=== PATIENT | male | born 1965 | race Caucasian/White ===

== ENCOUNTER 2020-03-27 12:23 | Outpatient (REF) | payer MEDICARE, OTHER, SELFPAY | END 2020-03-27 12:24 | disposition home or self-care (01) | LOC: HO.LAB 12:23 | PROVIDERS: PCP Student in an Organized Health Care Education/Training Program; Visit Provider Internal Medicine | DX: Z20.828 Contact with and (suspected) exposure to other viral communicable diseases (principal) | CPT/HCPCS: C9803; U0003 ==

== ENCOUNTER → 2020-04-15 09:14 | Outpatient (BNVA) | payer MEDICARE, OTHER, SELFPAY | PROVIDERS: PCP Student in an Organized Health Care Education/Training Program; Visit Provider Surgery Vascular Surgery | DX: I83.11 Varicose veins of right lower extremity with inflammation (principal); I73.9 Peripheral vascular disease, unspecified | CPT/HCPCS: 99202 ==

== ENCOUNTER 2020-05-05 08:15 | Outpatient (REF) | payer MEDICARE, OTHER, SELFPAY ==
--- NOTE | 2020-05-05 | US_ITS ---
EXAMINATION: COLOR-FLOW DUPLEX IMAGING OF THE BILATERAL LOWER EXTREMITY ARTERIAL SYSTEM. VELOCITY MEASUREMENTS THROUGHOUT THE FEMORAL ARTERIES WITH ANKLE-BRACHIAL PERIPHERAL ARTERIAL TESTING. CLINICAL INFORMATION: This is a 54-year-old male with occlusion and stenosis of unspecified artery. Hyperlipidemia. Hypertension. Interventional Radiologist: Carlos Luo M.D., F.S.I.R., F.A.C.R. RIGHT FEMORAL RUNOFF VELOCITIES: The right common femoral artery measures 149 cm/s and triphasic. The right profunda femoral artery is 106 cm/s and is biphasic. Right proximal superficial femoral artery measures 119 cm/s and triphasic. Mid superficial femoral artery is 114 cm/s and triphasic. Distal right superficial femoral artery measures 90 cm/s and is triphasic. Right popliteal velocity measures 105 cm/s and is triphasic. The posterior tibial artery velocity measures 91 cm/s and was triphasic. The right ankle-brachial index is 1.06. LEFT FEMORAL RUNOFF VELOCITIES: The left common femoral artery measures 1 4 cm/s and triphasic. The left profunda femoral artery is 102 cm/s and is biphasic. Left proximal superficial femoral artery measures 108 cm/s and biphasic. Mid superficial femoral artery is 112 cm/s and triphasic. Distal left superficial femoral artery measures 81 cm/s and is triphasic. Left popliteal velocity measures 82 cm/s and is triphasic. The posterior tibial artery velocity measures 81 cm/s and was triphasic. The left ankle-brachial index is 1.10. US/US KASSANDRA complete IMPRESSION: 1. Normal bilateral resting peripheral arterial testing without evidence of hemodynamically significant stenosis.
--- NOTE | 2020-05-05 08:19 | US_ITS ---
EXAMINATION: COLOR-FLOW DUPLEX IMAGING OF THE BILATERAL LOWER EXTREMITY ARTERIAL SYSTEM. VELOCITY MEASUREMENTS THROUGHOUT THE FEMORAL ARTERIES WITH ANKLE-BRACHIAL PERIPHERAL ARTERIAL TESTING. CLINICAL INFORMATION: This is a 54-year-old male with occlusion and stenosis of unspecified artery. Hyperlipidemia. Hypertension. Interventional Radiologist: Carlos Luo M.D., F.S.I.R., F.A.C.R. RIGHT FEMORAL RUNOFF VELOCITIES: The right common femoral artery measures 149 cm/s and triphasic. The right profunda femoral artery is 106 cm/s and is biphasic. Right proximal superficial femoral artery measures 119 cm/s and triphasic. Mid superficial femoral artery is 114 cm/s and triphasic. Distal right superficial femoral artery measures 90 cm/s and is triphasic. Right popliteal velocity measures 105 cm/s and is triphasic. The posterior tibial artery velocity measures 91 cm/s and was triphasic. The right ankle-brachial index is 1.06. LEFT FEMORAL RUNOFF VELOCITIES: The left common femoral artery measures 1 4 cm/s and triphasic. The left profunda femoral artery is 102 cm/s and is biphasic. Left proximal superficial femoral artery measures 108 cm/s and biphasic. Mid superficial femoral artery is 112 cm/s and triphasic. Distal left superficial femoral artery measures 81 cm/s and is triphasic. Left popliteal velocity measures 82 cm/s and is triphasic. The posterior tibial artery velocity measures 81 cm/s and was triphasic. The left ankle-brachial index is 1.10. US/US arterial duplex LE BI IMPRESSION: 1. Normal bilateral resting peripheral arterial testing without evidence of hemodynamically significant stenosis.
--- NOTE | 2020-05-05 08:19 | US_ITS ---
EXAMINATION: RIGHT and LEFT LOWER EXTREMITY VENOUS ULTRASOUND (Reflux Exam) CLINICAL INDICATION: leg pain and varicose veins. COMPARISON: None. TECHNIQUE: Color flow triplex imaging and compression Doppler was performed to evaluate both the deep and the superficial systems bilaterally. To evaluate the superficial system, the examination was performed in the upright position. Color-flow Doppler ultrasound and compression ultrasound were utilized. In addition, maneuvers were utilized to demonstrate reflux. FINDINGS: 1. DEEP VENOUS ULTRASOUND OF THE RIGHT LOWER EXTREMITY: Respiratory variation, normal compression and augmented flow are noted in the right common femoral vein as well as the right popliteal vein and there is no evidence of deep venous thrombosis at these locations. There is no evidence of reflux in the deep system in either the common femoral vein or the popliteal vein. There is no evidence of a Ashraf's cyst. 2. SUPERFICIAL ULTRASOUND WITH DOPPLER OF RIGHT LOWER EXTREMITY: The right great saphenous vein at the saphenofemoral junction measures 5 mm, at the mid thigh 3 mm, dbakh-sqc-iyli 3 mm, dlpmn-eks-ctbo 2 mm, at mid calf 1 mm and at the ankle measures 1 mm. There is no reflux demonstrated in the right great saphenous vein. The right small saphenous vein measures 2 mm and shows no reflux. 3. DEEP VENOUS ULTRASOUND OF THE LEFT LOWER EXTREMITY: Respiratory variation, normal compression and augmented flow are noted in the left common femoral vein as well as the left popliteal vein and there is no evidence of deep venous thrombosis at these locations. There is no evidence of reflux in the deep system in either the common femoral vein or the popliteal vein. . There is no evidence of a Ashraf's cyst. 4. SUPERFICIAL ULTRASOUND WITH DOPPLER OF LEFT LOWER EXTREMITY: Left great saphenous vein at the saphenofemoral junction measures 7 mm, at the mid thigh 2 mm, qpdca-lgy-yerc 1 mm, fztcy-gkh-tuni 1 mm, at mid calf 1 mm and at the ankle measures 1 mm. There is no reflux demonstrated in the left great saphenous vein. There is a lateral accessory greater saphenous vein that measures 2 mm and does not demonstrate reflux. The left small saphenous vein measures 2 mm and shows no reflux. There is a heater worker in the mid calf that measures 1 mm and does not demonstrate reflux. There are varicosities in the left thigh and calf measuring less than 2 mm that do not demonstrate reflux. US/US venous duplex LE BI IMPRESSION: 1. No evidence of reflux or thrombus in the common femoral veins or popliteal veins bilaterally. 2. The saphenous systems are competent bilaterally.
== END 2020-05-05 08:16 | disposition home or self-care (01) ==
LOC: HO.US 08:15
PROVIDERS: Visit Provider Surgery Vascular Surgery
DX: I83.11 Varicose veins of right lower extremity with inflammation (principal); I73.9 Peripheral vascular disease, unspecified; I65.29 Occlusion and stenosis of unspecified carotid artery
CPT/HCPCS: 93923; 93925; 93970

== ENCOUNTER → 2020-05-20 08:27 | Outpatient (BNVA) | payer MEDICARE, OTHER, SELFPAY | PROVIDERS: PCP Student in an Organized Health Care Education/Training Program; Visit Provider Surgery Vascular Surgery | DX: I73.9 Peripheral vascular disease, unspecified (principal); I83.11 Varicose veins of right lower extremity with inflammation | CPT/HCPCS: 99212 ==

== ENCOUNTER → 2020-06-02 15:59 | Outpatient (BNVA) | payer MEDICARE, OTHER, SELFPAY | PROVIDERS: PCP Student in an Organized Health Care Education/Training Program; Visit Provider Anesthesiology | DX: M19.011 Primary osteoarthritis, right shoulder (principal); M16.0 Bilateral primary osteoarthritis of hip; Z96.643 Presence of artificial hip joint, bilateral | CPT/HCPCS: 99212 ==

== ENCOUNTER → 2021-08-13 07:53 | Outpatient (BNVA) | payer MEDICARE, OTHER, SELFPAY | PROVIDERS: PCP Student in an Organized Health Care Education/Training Program; Visit Provider Nurse Practitioner | DX: R10.30 Lower abdominal pain, unspecified (principal); K59.03 Drug induced constipation; T40.2X5A Adverse effect of other opioids, initial encounter; Z88.6 Allergy status to analgesic agent | CPT/HCPCS: 99202 ==

== ENCOUNTER 2021-10-06 07:35 | Outpatient (REF) | payer MEDICARE, OTHER, SELFPAY ==
[2021-10-06 08:34] LABS: MANUAL DIFF FLAG NO
[2021-10-06 09:09] LABS: Basophils Absolute Auto 0.1 X10*3/uL (0.0-0.2); Basophils Percent Auto 0.9 % (0-2); Eosinophils Absolute Auto 0.3 X10*3/uL (0.0-0.4); Eosinophils Percent Auto 3.1 % (0-4); Hematocrit 39.7 % (42.0-52.0); Imm Gran Abs Auto 0.03 X10*3/uL (0.00-0.03); Imm Gran Pct Auto 0.4 % (0.0-0.4); Lymphocytes Absolute Auto 2.4 X10*3/uL (1.2-4.9); Lymphocytes Percent Auto 29.6 % (20-40); Mean Corpuscular HGB Conc 32.7 g/dl (31.0-36.0); Mean Corpuscular Hemoglobin 28.8 pg (27.0-33.0); Mean Corpuscular Volume 87.8 fL (80.0-98.0); Mean Platelet Volume 8.6 fL (9.4-12.4); Monocytes Absolute Auto 0.7 X10*3/uL (0.1-1.2); Monocytes Percent Auto 8.6 % (2-11); Neutrophils Absolute Auto 4.7 x10*3/uL (2.0-8.3); Neutrophils Percent Auto 57.4 % (45-73); Platelet Count 269 X10*3/uL (160-400); Red Blood Count 4.52 X10*6/uL (4.60-5.80); Red Cell Distribution Width 12.5 % (11.0-16.0); White Blood Count 8.1 X10*3/uL (4.8-10.8)
[2021-10-06 09:34] LABS: Alanine Aminotransferase 38 U/L (0-40); Albumin Level 4.6 g/dL (3.5-5.0); Alkaline Phosphatase 92 U/L (39-117); Anion Gap 16 (12-20); Aspartate Amino Transferase 28 U/L (5-37); Bilirubin Total 0.8 mg/dL (0.0-1.0); Blood Urea Nitrogen 22 mg/dL (9-16); Carbon Dioxide 27 mmol/L (22-29); Chloride 101 mmol/L (96-108); Estimated Glomerular Filt Rate 56; Glucose Random 110 mg/dL (60-115); Potassium 5.5 mmol/L (3.3-5.1); Sodium 138 mmol/L (135-145); Total Protein 7.6 g/dL (6.5-8.0)
== END 2021-10-06 07:36 | disposition home or self-care (01) ==
LOC: HO.LAB 07:35
PROVIDERS: PCP Student in an Organized Health Care Education/Training Program; Visit Provider Nurse Practitioner
DX: K59.03 Drug induced constipation (principal); T40.2X5A Adverse effect of other opioids, initial encounter; Z12.11 Encounter for screening for malignant neoplasm of colon
CPT/HCPCS: 36415; 80053; 85025; 99212

== ENCOUNTER 2022-12-03 09:29 | Outpatient (REF) | payer MEDICARE, OTHER, SELFPAY ==
[2022-12-03 14:59] LABS: Alanine Aminotransferase 15 U/L (0-40); Albumin Level 4.6 g/dL (3.5-5.0); Alkaline Phosphatase 89 U/L (39-117); Anion Gap 19 (12-20); Aspartate Amino Transferase 16 U/L (5-37); Bilirubin Direct 0.3 mg/dL (0.0-0.5); Bilirubin Total 0.8 mg/dL (0.0-1.0); Blood Urea Nitrogen 17 mg/dL (9-16); Calcium 9.7 mg/dL (8.4-10.2); Carbon Dioxide 22 mmol/L (22-29); Chloride 98 mmol/L (96-108); Cholesterol 136 mg/dL; Estimated Glomerular Filt Rate > 60; Glucose Random 83 mg/dL (60-115); HDL Cholesterol 42 mg/dL; LDL Cholesterol Calculated 74 mg/dl; Potassium 4.4 mmol/L (3.3-5.1); Sodium 135 mmol/L (135-145); Total Protein 7.6 g/dL (6.5-8.0); Triglycerides 102 mg/dL
[2022-12-03 15:14] LABS: Prostate Specific Antigen 0.47 ng/mL (<0.05-4.0)
== END 2022-12-03 09:30 | disposition home or self-care (01) ==
LOC: HO.CHCLDS 09:29
PROVIDERS: Visit Provider Student in an Organized Health Care Education/Training Program
DX: I10 Essential (primary) hypertension (principal); Z12.5 Encounter for screening for malignant neoplasm of prostate
CPT/HCPCS: 36415; 80048; 80061; 80076; 84153

== ENCOUNTER 2024-08-16 08:51 | Outpatient (REF) | payer MEDICARE, OTHER, SELFPAY ==
--- OUTSIDE RECORDS SUMMARY | 2024-08-16 09:20 | XMS_ITS | Encounter Summary ---
Author Organization [employer] Address [address] [place] [address] Care Team Providers Care Computer Trainer Name Role Phone Dasia Gar MD Primary Care Provider [phone] Encounter Details Date Type Department Care Team (Latest Contact Info) Description 08/16/2024 Travel Social History Tobacco Use Types Packs/Day Years Used Date Smoking Tobacco: Former Cigarettes Smokeless Tobacco: Former Alcohol Use Standard Drinks/Week Comments Defer 0 (1 standard drink = 0.6 oz pur e alcohol) Alcohol Answer Date Recorded Frequency of Alcohol Consumption Not on file 04/14/2023 Average Number of Drinks Not on file 023 Frequency of Binge Drinking Not on file 11/2022 Score 0 04/14/2023 Depression Answer Date Recorded Patient Health Questionnaire-9 Score 4 09/29/2022 Housing Stability Answer Date Recorded What is your housing situation today? I have mg virk 06/13/[address] you li ve. Do you have problems with any of the following? None of the above 06/13/2024 Food Insecurity Answer Date Recorded Within the past 12 months, y ou worried that your food would run out before you got money to buy more: Never True 06/13/2024 Within the past 12 months,th e food you bought just didn't last and you didn't have enough money to get more: Never True 09/2024 Transportation Answer Date Recorded In the past 12 months, has l ack of transportation kept you from medical appts, meetings, work or from getting things needed for daily living? No 06/13/2024 Utilities Answer Date Recorded In the past 12 months, has t he electric, gas, oil or water company threatened to shut off services in your home? No 06/13/2024 Depression Answer Date Recorded Patient Health Questionnaire-2 Score 2 09/29/2022 Internet Access Answer Date Recorded Internet Access Q1 Yes 06/13/2024 Internet Access Q2 Not on file 06/13/2024 Sex and Gender Information Value Date Recorded Sex Assigned at Male 03/08/2022 10:17 AM EDT Legal Sex Male 10:17 AM EDT Gender Identity Male 03/08/2022 10:17 AM EDT Sexual Orientation Straight 03/08/2022 10 :17 AM EDT documented as of this encounter Plan of Treatment Upcoming Encounters Date Type Department Care Team (Late st Contact Info) Description 10/05/2024 9:15 AM EDT Office Visit [facility] [address] [place] [address] Dasia Gar MD [address] [place] [address] 10/24/2024 9:00 AM EDT Clinical Support [facility] [address] [place] [address] Shelly Jarquin, GEOVANNA [address] [place] [address] documented as of this encounter Visit Diagnoses Not on filedocumented in this encounter Additional Health Concerns Assessment Noted Time PHQ-9 Depression Total Score: 4 09/30/19 23 9:25 AM EDT documented as of this encounter Care Teams Computer Trainer Relationship Specialty Start Date End Date Dasia Gar MD [address] [place] [id number] PCP - General Family Medicine 04/21/12 documented as of this encounter
--- OUTSIDE RECORDS SUMMARY | 2024-08-16 09:20 | XMS_ITS | Encounter Summary ---
Author Organization [email or web address] Address [address] [place] [address] Care Team Providers Care Movie Writer Name Role Phone Dasia Gar MD Primary Care Provider [phone] Reason for Visit * Reason Comments Med Refill Encounter Details Date Type Department Care Team (Late st Contact Info) Description 05/04/2023 Refill [facility] [address] [place], [place] [phone] Anahi Parker, ANP [address] [place] [address] Low back pain without sciatica, unspecified back pain laterality, unspecified chronicity Social History Tobacco Use Types Packs/Day Years [...] housing situation today? I have mg virk 03/04/[address] you li ve. Do you have problems with any of the following? None of the above 03/04/2023 Food Insecurity Answer Date Recorded Within the past 12 months, y ou worried that your food would run out before you got money to buy more: Never True 04/14/2023 Within the past 12 months,th e food you bought just didn't last and you didn't have enough money to get more: Never True 11/2022 Transportation Answer Date Recorded In the past 12 months, has l ack of transportation kept you from medical appts, meetings, work or from getting things needed for daily living? No 03/04/2023 Utilities Answer Date Recorded In the past 12 months, has t he electric, gas, oil or water company threatened to shut off services in your home? No 03/04/2023 Depression Answer Date Recorded Patient Health Questionnaire-2 Score 2 09/29/2022 Sex and Gender Information Value Date Recorded Sex Assigned at Male 03/08/2022 10:17 AM EDT Legal Sex Male 10:17 AM EDT Gender Identity Male 03/08/2022 10:17 AM EDT Sexual Orientation Straight 03/08/2022 10 :17 AM EDT documented as of this encounter Plan of Treatment Upcoming Encounters Date Type Department Care Team (Late st Contact Info) Description 10/05/2024 9:15 AM EDT Office Visit [facility] [address] [place] [address] Dasia Gar MD [address] [place] [address] 10/24/2024 9:00 AM EDT Clinical Support [facility] [address] [place] [address] Shelly Jaruqin, RN [address] [place] [address] documented as of this encounter Visit Diagnoses Diagnosis Low back pain without sciatica, unspecified back pain laterality, unspecified chronicity documented in this encounter Additional Health Concerns Assessment Noted Time PHQ-9 Depression Total Score: 4 09/30/19 23 9:25 AM EDT documented as of this encounter Care Teams Movie Writer Relationship Specialty Start Date End Date Dasia Gar MD [address] [place] [id number] PCP - General Family Medicine 04/21/12 documented as of this encounter
--- OUTSIDE RECORDS SUMMARY | 2024-08-16 09:20 | XMS_ITS | Clinical Summary ---
Author Organization [employer] Address [address] [facility] [address] [place] [address] Care Team Providers Care Solar Photovoltaic Installer Name Role Phone Dasia Gar MD Primary Care Provider [phone] Allergies Active Allergy Reactions Criticality Noted Date Comments Pregabalin 01/06/2016 Medications albuterol (ProAir HFA) 108 (90 Base) MCG/ACT inhaler take 2 puffs by Inhalation route 4 times every day 11/19/19 21 Active buPROPion SR (Wellbutrin SR) 200 MG 12 hr tablet take 1 tablet (200MG) by oral route every day Active diazePAM (Valium) 10 MG tablet Take 1 tablet by mouth every twelve hours as needed Active FLUoxetine (PROzac) 20 MG tablet take 1 Tablet by oral route every 2 days in the morning Active hydrOXYzine HCl (Atarax) 25 MG tablet take 1 tablet (25MG) by oral route every 6 - 8 hours Active naloxone (Narcan) 4 mg/0.1 mL nasal spray spray 0.1 milliliter by intranasal route in 1 nostril may repeat dose every 2-3 minutes as needed alternating nostrils with each dose 01/23/20 22 Active omeprazole OTC (PriLOSEC OTC) 20 MG EC tablet take 1 Tablet by Oral route every day 11/21/19 22 Active Blood Pressure kit Apply 1 not specified by [facility].(Non-drug ; combo) route every day 11/19/19 21 Active cyclobenzaprin e (Flexeril) 10 MG tablet TAKE ONE TABLET BY MOUTH TWICE DAILY 60 tablet 4 12/01/19 24 Active SUMAtriptan (Imitrex) 25 MG tablet TAKE 1 TABLET BY MOUTH AT ONSET OF MIGRAINE. MAY REPEAT ONCE AFTER 2 HOURS IF NEEDED, DO NOT EXCEED TWO TABLETS IN 24 HOURS 30 tablet 01/15/20 24 Active morphine CR (MS Contin) 15 MG 12 hr tabletIndicati ons:Low back pain without sciatica, unspecified back pain laterality, unspecified chronicity Take 1 tablet (15 mg) by mouth 2 times daily. Do not crush, chew, or split. 56 tablet 04/30/20 24 Active omeprazole (PriLOSEC) [address] capsuleIndicat ions:Gastroeso phageal reflux disease without esophagitis TAKE ONE CAPSULE EVERY DAY 90 capsule 1 06/08/19 25 Active topiramate (Topamax) 25 MG tabletIndicati ons:Migraine without aura, not intractable, without status migrainosus TAKE ONE TABLET BY MOUTH EVERY DAY 30 tablet 3 06/19/19 25 Active lidocaine (Lidoderm) 5 % patchIndicatio ns:Chronic right shoulder pain Apply 1 patch topically Once per day. Remove & discard patch within 12 hours or as directed by MD. 30 patch 06/20/19 25 026 Active morphine CR (MS Contin) 15 MG 12 hr tabletIndicati ons:Low back pain without sciatica, unspecified back pain laterality, unspecified chronicity Take 1 tablet (15 mg) by mouth 2 times daily. Do not crush, chew, or split. 56 tablet 06/26/19 25 Active lisinopril 20 MG tabletIndicati ons:Dizziness TAKE ONE TABLET BY MOUTH EVERY DAY 90 tablet 11 07/31/19 25 Active atorvastatin (Lipitor) 20 MG tablet TAKE ONE TABLET DAILY 90 tablet 07/31/19 25 Active morphine (MSIR) 15 MG tabletIndicati ons:Chronic pain syndrome Take 1 tablet (15 mg) by mouth every 8 (eight) hours if needed for severe pain for up to 28 days. 84 tablet 08/07/19 25 025 Active lisinopril 20 MG tabletIndicati ons:Dizziness TAKE ONE TABLET BY MOUTH EVERY DAY 90 tablet 11 07/25/19 24 025 Discontinued atorvastatin (Lipitor) 20 MG tablet TAKE ONE TABLET DAILY 90 tablet 04/30/20 24 025 Discontinued morphine (MSIR) 15 MG tabletIndicati ons:Chronic pain syndrome Take 1 tablet (15 mg) by mouth every 8 (eight) hours if needed for severe pain for up to 28 days. 84 tablet 07/04/19 25 025 Discontinued(R eorder (will not trigger notification to Pharmacy)) Active Problems Problem Noted Date Diagnosed Date Long-term current use of opiate analgesic 2024 BHAVIK (generalized anxiety disorder) 05/11/2022 Cannabis dependence 05/11/2022 Anxiety 09/27/2013 Backache 09/27/2013 Depressive disorder 09/27/2013 Resolved Problems Problem Noted Date Diagnosed Date Resolved Date Recurrent major depressive disorder 05/11/2022 06/20/2024 Encounters Date Type Department Care Team Description 08/16/2024 9:00 AM EDT Clinical Support [facility] MED & PEDS [address] [place] [address] Shelly Jarquin RN Chronic pain syndrome (Primary Dx); Long-term current use of opiate analgesic 08/16/2024 Telephone [facility] [address] [place] [address] Shelly Jarquin RN 08/16/2024 Travel 08/06/2024 Refill [facility] [address] [place] [address] Dasia Gar MD Chronic pain syndrome 07/30/2024 Refill [facility] [address] [place] [address] Mike Ramirez MD 07/30/2024 Refill [facility] [address] [place] [address] Dasia Gar MD Dizziness 07/04/2024 Refill [facility] [address] [place] [address] Shelly Jarquin RN Chronic pain syndrome (Primary Dx) 06/26/2024 Refill [facility] [address] [place] [address] Dasia Gar MD Low back pain without sciatica, unspecified back pain laterality, unspecified chronicity 06/20/2024 9:30 AM EST Office Visit [facility] [address] [place] [address] Dasia Gar MD Primary hypertension (Primary Dx); BHAVIK (generalized anxiety disorder); Depressive disorder; Chronic pain syndrome; Chronic right shoulder pain; Screening for STD (sexually transmitted disease); Encounter for annual wellness visit; Encounter for screening for malignant neoplasm of colon; Screening for colon cancer 06/20/2024 Travel 06/19/2024 Telephone [facility] [address] [place] [address] Dasia Gar MD Chart Prep 2024 Refill [facility] [address] [place] [address] Dasia Gar MD Migraine without aura, not intractable, without status migrainosus 06/13/2024 Patient Outreach [facility] [address] [place] [address] Dasia Gar MD Pre-visit Planning (SDOH negative, Tobacco screening negative. ) 06/06/2024 Refill [facility] [address] [place] [address] Dasia Gar MD Gastroesophageal reflux disease without esophagitis 05/23/2024 Refill [facility] [address] [place] [address] Dasia Gar MD Low back pain without sciatica, unspecified back pain laterality, unspecified chronicity from Last 3 Months Immunizations Name Administration Dates Next Due Influenza injectable quadriv alent IIV4 with preservative 04/07/2015 Moderna Covid-19 Vaccine 12+ 05/17/2021 Pfizer Covid-19 Vaccine 12+ 10/09/2020, Tdap 12/19/2015 Social History Tobacco Use Types Packs/Day Years Used Date Smoking Tobacco: Former Cigarettes Smokeless Tobacco: Former Tobacco Cessation:Counseling Given: Not Answered Alcohol Use Standard Drinks/Week Comments Defer 0 [...] Orientation Straight 03/08/2022 10 :17 AM EDT Last Filed Vital Signs Vital Sign Reading Time Taken Comments Blood Pressure 126/72 06/20/2024 9:32 AM EST Pulse 118 06/20/2024 9:32 AM EST Temperature 36.3 ??C (97.3 ??F) 06/20/2024 9:32 AM ES T Respiratory Rate 18 06/20/2024 9:32 AM EST Oxygen Saturation 95% 06/20/2024 9:32 AM EST Inhaled Oxygen Concentration - - Weight 82.9 kg (182 lb 12.8 oz) 06/20/2024 9:32 AM EST Height 174 cm (5' 8.5 ) 06/20/2024 9:32 AM EST Body Mass Index 27.39 06/20/2024 9:32 AM EST Plan of Treatment Upcoming Encounters Date Type Department Care Team (Late st Contact Info) Description 10/05/2024 9:15 AM EDT Office Visit [facility] [address] [facility] [place] [address] Dasia Gar MD [address] [facility] [place] [place] [address] 10/24/2024 9:00 AM EDT Clinical Support [facility] [address] [facility] [place] [address] Shelly Jarquin RN [address] [facility] [place] [address] Health Maintenance Due Date Last Done Comments CT Colonography 1964 Colonoscopy 1964 Colorectal Cancer Screening 1964 FIT DNA/Cologuard 1964 FIT 1964 FOBT 1964 HIV Screening 1964 Sigmoidoscopy 1964 Hepatitis C Screening 1982 Pneumococcal Vaccine: 50+ Years (1 of 1 - PCV) 2014 Zoster Vaccines (1 of 2) 2014 Depression Screening 09/30/2023 09/29/2022, 09/29/2022 Influenza Vaccine (#1) 2024 04/07/2015 Postp oned from 01/08/2024 (Patient Refused) SDOH Screening 06/13/2025 06/13/2024 Tobacco Screening 06/13/2025 06/13/2024 Alcohol/Substance Use Screening 06/20/2025 06/20/2024 COVID-19 Vaccine (4 - 2023-2 5 season) 2025 05/17/2021, 10/09/2020, 09/12/2020 Postponed from 01/08/2024 (Patient Refused) DTaP/Tdap/Td Vaccines (2 - T d or Tdap) 12/18/2025 12/19/2015 Lipid Panel 12/04/2027 12/03/2022, 11/25/2021 RSV Patients and Patients Aged 60 years or older (1 - 1-dose 75+ series) 2039 HIB Vaccines Aged Out No longer eligi ble based on patient's age to complete this topic HPV Vaccines Aged Out No longer eligi ble based on patient's age to complete this topic Hepatitis A Vaccines Aged Out No long er eligible based on patient's age to complete this topic Hepatitis B Vaccines Aged Out No long er eligible based on patient's age to complete this topic IPV Vaccines Aged Out No longer eligi ble based on patient's age to complete this topic Meningococcal Vaccine Aged Out No beatriz akila eligible based on patient's age to complete this topic RSV under 20 months Aged Out No longe r eligible based on patient's age to complete this topic Rotavirus Vaccines Aged Out No longer eligible based on patient's age to complete this topic Procedures Procedure Name Priority Date/Time Associated Diagnosis Comments POCT CHANCE-14 URINE DRUG SCREEN Routine 08/16/2024 9:18 AM EDT Long-term current use of opiate analgesic Chronic pain syndrome LIPID PANEL, STANDARD Routine 12/03/2022 9:33 AM EDT Primary hypertension from Last 3 Months or Most Recently Relevant to Health Maintenance Results * POCT CHANCE-14 Urine Drug Screen (08/16/2024 9:18 AM EDT) THC Positive Opiate Screen, Urine Positive Benzodiazepines Screen, Urine Positive TCA, Urine Positive Urine Urine specimen obtained by clean catch procedure / Unknown 08/16/2024 9:18 AM EDT Narrative Shelly Jarquin, GEOVANNA - 08/16/2024 9:18 AM EDT Lot# [id number] Exp: 12-26-25 Dasia Gar MD POINT OF CARE TEST ENTER/EDIT OR DERABLES Final Result * Lipid Panel, Standard (12/03/2022 9:33 AM EDT) Triglycerides 102 mg/dL [facility] Comment:Desirable Triglyceri de: less than 150 mg/dLBorderline High Triglyceride 150-199 mg/dLHigh Triglyceride: 200-499 mg/dLVery High Triglyceride: greater than or equal to 5OO mg/dL Cholesterol 136 mg/dL [facility] Comment:Desirable Cholestero l: less than 200 mg/dLBorderline High Cholesterol: 200-239 mg/dLHigh Cholesterol: greater than 239 mg/dL LDL Cholesterol Calculated 74 mg/dl [facility] Comment:Desirable LDL: less than 100 mg/dLNear Optimal/Above Optimal LDL: 110- 129 mg/dLBorderline High LDL: 130-159 mg/dLHigh LDL: 160-189 mg/dLVery High LDL: greater than or equal to 190 mg/dL HDL Cholesterol 42 mg/dL [facility] Comment:Desirable HDL: great er than 40 mg/dL Note: This HDL assay may give artificially low results in patients with liver disease. Blood Venous blood specimen / Unknown 12/03/2022 9:33 AM EDT 12/03/2022 2:12 PM EDT us Dasia Gar MD LAB BLOOD ORDERABLES Final Resul t [facility] [address] [place] [address] [phone] from Last 3 Months or Most Recently Relevant to Health Maintenance Insurance [facility] MEDICARE REPLACEMENT [facility] F[facility] Care Teams Solar Photovoltaic Installer Relationship Specialty Start Date End Date Dasia Gar MD [address] [place] [id number] PCP - General Family Medicine 04/21/12
--- OUTSIDE RECORDS SUMMARY | 2024-08-16 09:20 | XMS_ITS | Encounter Summary ---
Author Organization [employer] Address [address] 7[address] [place] [address] Care Team Providers Care Assessment Coordinator Name Role Phone Dasia Gar MD Primary Care Provider [phone] Reason for Visit * Reason Comments Med Refill Encounter Details Date Type Department Care Team ([facility] st Contact Info) Description 05/04/2023 Refill [facility]S [address] [place], [place] [id number] Dasia Gar MD [address] [place] [address] Low back pain without sciatica, unspecified back [...] AM EDT documented as of this encounter Miscellaneous Notes * Telephone Encounter - Shelly Orosco RN - 05/05/2023 10:24 AM EST TC back to pt regarding message below. Med sent to the pharm. documented in this encounter Plan of Treatment Upcoming Encounters Date Type Department Care Team (Late st Contact Info) Description 10/05/2024 9:15 AM EDT Office Visit [facility] MED & PEDS [address] [place] [address] Dasia Gar MD [address] [place] [address] 10/24/2024 9:00 AM EDT Clinical Support [facility] MED & PEDS [address] [place] [address] Shelly Jarquin RN [address] [place] [address] documented as of this encounter Visit Diagnoses Diagnosis Low back pain without sciatica, unspecified back pain laterality, unspecified chronicity documented in this encounter Additional Health Concerns Assessment Noted Time PHQ-9 Depression Total Score: 4 09/30/19 23 9:25 AM EDT documented as of this encounter Care Teams Assessment Coordinator Relationship Specialty Start Date End Date Dasia Gar MD [address] [place] [address] PCP - General Family Medicine 04/21/12 documented as of this encounter
--- OUTSIDE RECORDS SUMMARY | 2024-08-16 09:20 | XMS_ITS | Encounter Summary ---
Author Organization [employer] Address [address] [facility] 7[address] [place] [address] Care Team Providers Care Kilnman Name Role Phone Dasia Gar MD Primary Care Provider [phone] Encounter Details Date Type Department Care Team ([facility] Contact Info) Description 08/16/2024 Telephone [facility] CH[facility] MED & PEDS [address] [place] [address] Shelly Jarquin RN [address] [place], [place] Social History Tobacco Use Types Packs/Day Years [...] Miscellaneous Notes * Telephone Encounter - Shelly Jarquin RN - 08/16/2024 9:07 AM EDT .What [employer] DRIVER Tier would you like this patient to be? Tier 1 = HIGH RISK, Monthly [employer] COMPANY DRIVER visits Tier 2 = MODerate RISK, Q3 Month visits Tier 3 = LOW RISK = Q4-6 month visits documented in this encounter Plan of Treatment Upcoming Encounters Date Type Department Care Team (Late st Contact Info) Description 10/05/2024 9:15 AM EDT Office Visit [facility] MED & PEDS [address] [place] [address] Dasia Gar MD 505 [place] [address] 10/24/2024 9:00 AM EDT Clinical Support [facility] MED & PEDS [address] [place] [address] Shelly Jarquin RN [address] [place] [address] documented as of this encounter Visit Diagnoses Not on filedocumented in this encounter Additional Health Concerns Assessment Noted Time PHQ-9 Depression Total Score: 4 09/30/19 9:25 AM EDT documented as of this encounter Care Teams Kilnman Relationship Specialty Start Date End Date Dasia Gar MD [address] [place] [address] PCP - General Family Medicine 04/21/12 documented as of this encounter
--- OUTSIDE RECORDS SUMMARY | 2024-08-16 09:20 | XMS_ITS | Encounter Summary ---
Author Organization [employer] Address [address] [address] 7[address] [place] [address] Care Team Providers Care Collaborating Supervising Physician Name Role Phone Dasia Gar MD Primary Care Provider [phone] Reason for Visit * Reason Onset Date Comments Med Refill 04/02/2024 Encounter Details Date Type Department Care Team (Late st Contact Info) Description 04/02/2024 Telephone [facility] MEDICINE [address] [place] [address] Dasia Gar MD [address] [place] [address] Med Refill Social History Tobacco Use Types Packs/Day Years [...] encounter Miscellaneous Notes * Telephone Encounter - Marie Tineo - 04/02/2024 9:24 AM EST TC from pt requesting medication refill. Medications needing refill : morphine CR (MS Contin) 15 MG 12 hr tablet To be sent to: [facility] documented in this encounter Plan of Treatment Upcoming Encounters Date Type Department Care Team (Late st Contact Info) Description 10/05/2024 9:15 AM EDT Office Visit [facility] MED & PEDS [address] [place] [address] Dasia Gar MD 505 [place] [address] 10/24/2024 9:00 AM EDT Clinical Support [facility] MED & PEDS [address] [place] [address] Shelly Jarquin, GEOVANNA 505 [place] [address] documented as of this encounter Visit Diagnoses Not on filedocumented in this encounter Additional Health Concerns Assessment Noted Time PHQ-9 Depression Total Score: 4 09/30/19 23 9:25 AM EDT documented as of this encounter Care Teams Collaborating Supervising Physician Relationship Specialty Start Date End Date Dasia Gar MD [address] [place] [address] [place] [address] PCP - General Family Medicine 04/21/12 documented as of this encounter
--- OUTSIDE RECORDS SUMMARY | 2024-08-16 09:20 | XMS_ITS | Encounter Summary ---
Author Organization [employer] Address [address] 7[address] [place] [address] Care Team Providers Care Top Stitcher Name Role Phone Dasia Gar MD Primary Care Provider [phone] Reason for Visit * Reason Comments controlled substance treatment Encounter Details Date Type Department Care Team (Latest Contact Info) Description 08/16/2024 9:00 AM EDT Clinical Support [facility] MED & PEDS [address] [place] [address] Shelly Jarquin, RN 505 [place] [address] Chronic pain syndrome (Primary Dx); Long-term current use of opiate analgesic Social History Tobacco Use Types Packs/Day Years [...] Description 10/05/2024 9:15 AM EDT Office Visit [facility] MED & PEDS [address] [place] [address] Dasia Gar MD [address] [place] [address] 10/24/2024 9:00 AM EDT Clinical Support [facility] MED & PEDS [address] [place] [address] Shelly Jarquin RN [address] [place] [address] documented as of this encounter Procedures Procedure Name Priority Date/Time Associated Diagnosis Comments POCT CHANCE-14 URINE DRUG SCREEN Routine 08/16/2024 9:18 AM EDT Long-term current use of opiate analgesic Chronic pain syndrome documented in this encounter Results * POCT CHANCE-14 Urine Drug Screen (08/16/2024 9:18 AM EDT) THC Positive Opiate Screen, Urine Positive Benzodiazepines Screen, Urine Positive TCA, Urine Positive Urine Urine specimen obtained by clean catch procedure / Unknown 08/16/2024 9:18 AM EDT Narrative Shelly Jarquin, RN - 08/16/2024 9:18 AM EDT Lot# [id number] Exp: 12-26-25 Dasia Gar MD POINT OF CARE TEST ENTER/EDIT OR DERABLES Final Result documented in this encounter Visit Diagnoses Diagnosis Chronic pain syndrome- Primary Long-term current use of opiate analgesic Encounter for long-term (current) use of other medications documented in this encounter Additional Health Concerns Assessment Noted Time PHQ-9 Depression Total Score: 4 09/30/19 23 9:25 AM EDT documented as of this encounter Care Teams Top Stitcher Relationship Specialty Start Date End Date Dasia Gar MD [address] [place] [id number] PCP - General Family Medicine 04/21/12 documented as of this encounter
--- OUTSIDE RECORDS SUMMARY | 2024-08-16 09:20 | XMS_ITS | Encounter Summary ---
Author Organization [employer] Address [address] [facility] [address] 7[address] [place] [address] Care Team Providers Care Chief Dog License Inspector Name Role Phone Dasia Gar MD Primary Care Provider [phone] Reason for Visit * Reason Onset Date Comments Reschedule 08/10/2023 Encounter Details Date Type Department Care Team (Late st Contact Info) Description 08/10/2023 Telephone [facility] MEDICINE [address] [place] [address] Dasia Gar MD [address] [place] [address] Reschedule Social History Tobacco Use Types Packs/Day Years [...] encounter Miscellaneous Notes * Telephone Encounter - Pamela Seth - 08/10/2023 8:33 AM EDT Tc from pt requesting r/s MODEL SET ARTIST appt documented in this encounter Plan of Treatment Upcoming Encounters Date Type Department Care Team (Late st Contact Info) Description 10/05/2024 9:15 AM EDT Office Visit [facility] MED & PEDS [address] [place] [address] Dasia Gar MD 505 [place] [address] 10/24/2024 9:00 AM EDT Clinical Support [facility] MED & PEDS [address] [place] [address] Shelly Jarquin RN 505 [place] [address] documented as of this encounter Visit Diagnoses Not on filedocumented in this encounter Additional Health Concerns Assessment Noted Time PHQ-9 Depression Total Score: 4 09/30/19 23 9:25 AM EDT documented as of this encounter Care Teams Chief Dog License Inspector Relationship Specialty Start Date End Date Dasia Gar MD [address] [place] [address] PCP - General Family Medicine 04/21/12 documented as of this encounter
[2024-08-17 04:32] LABS: HIV AB/AG Nonreactive (Nonreactive); HIV Num 1 0.06 S/CO (0.00-0.99); ~HepC Num1 0.11 S/CO (0.00-0.79); ~Hepatitis C Antibody Nonreactive (Nonreactive)
== END 2024-08-16 08:52 | disposition home or self-care (01) ==
LOC: HO.CHCLDS 08:51
PROVIDERS: Visit Provider Student in an Organized Health Care Education/Training Program
DX: Z11.3 Encounter for screening for infections with a predominantly sexual mode of transmission (principal)
CPT/HCPCS: 36415; 86803; 87389

== ENCOUNTER 2025-02-27 09:29 | Outpatient (REF) | payer MEDICARE, OTHER, SELFPAY ==
--- OUTSIDE RECORDS SUMMARY | 2025-02-26 13:20 | XMS_ITS | Encounter Summary ---
Author Organization [employer] Address [address] [place] [address] Care Team Providers Care Yard Loader Operator Name Role Phone Dasia Gar MD Primary Care Provider [phone] Reason for Referral * Imaging (Urgent) - Authorized Specialty Diagnoses / Procedures Referred By Syl amin Referred To Contact Radiology Diagnoses Left lower quadrant pain Procedures CT Abdomen Pelvis w/ and w/o Contrast Eduardo Turner MD [address] [place] [address] Phone: tel: fax: [facility] [address] [facility], [address] [place] [address] Phone: tel: fax: Referral ID Status Reason Start Date Expiration Date V isits Requested Visits Authorized [id number] Authorized 02/26/2025 02/26/2026 1 1 * Consultation (Routine) - Pending Review Specialty Diagnoses / Procedures Referred By Syl amin Referred To Contact Gastroenterology Diagnoses Reflux gastritis Eduardo Turner MD [address] [place] [address] Phone: tel: fax: Referral ID Status Reason Start Date Expiration Date Visits Requested Visits Authorized [id number] Pending Review Specialty Services Required 02/26/2026 1 1 Encounter Details Date Type Department Care Team (Late st Contact Info) Description 02/26/2025 1:20 PM EDT Office Visit [facility] MED & PEDS [address] [place] [address] Eduardo Turner MD [address] [place] [address] Diarrhea, unspecified type (Primary Dx); Reflux gastritis; Left lower quadrant pain Social History Tobacco Use Types Packs/Day Years [...] AM EDT documented as of this encounter Last Filed Vital Signs Vital Sign Reading Time Taken Comments Blood Pressure 126/74 02/26/2025 1:17 PM EDT Pulse 120 02/26/2025 1:17 PM EDT Temperature 36.2 C (97.2 F) 02/26/2025 1:17 PM EDT Respiratory Rate 20 02/26/2025 1:17 PM EDT Oxygen Saturation 98% 02/26/2025 1:17 PM EDT Inhaled Oxygen Concentration - - Weight 82.6 kg (182 lb) 02/26/2025 1:17 PM EDT Height 174 cm (5' 8.5 ) 02/26/2025 1:17 PM EDT Body Mass Index 27.27 02/26/2025 1:17 PM EDT documented in this encounter Progress Notes * Eduardo Turner MD - 02/26/2025 1:20 PM EDT SUBJECTIVE Srinath Carey is a 59 y.o. male who presents for No chief complaint on file.. HPI Srinath Carey, 59-year-old male - Stopped opiates approximately 6.5 to 7 months ago after 20 years of use, underwent self-detox with assistance from girlfriend - History of bilateral hip and knee replacements, locked shoulder for 4 months, attended physical therapy for hips and shoulder - Chronic gastrointestinal symptoms since stopping opiates, including loose stools and gas pains - Diarrhea and severe acid reflux for past 2 weeks, with burning sensation in rectum and frequent watery bowel movements (up to every hour for 12 hours, now 4 times nightly) - Stool consistency changed from hard to loose over recent months - Reports acid sensation filling stomach and intestines, drinking water to stay hydrated - No fever, clear urine - Swam in river one day before uriah COVID in January 2025, reports not feeling well since then - Taking Prilosec daily for years due to chronic acid reflux, previously related to morphine use - Occasional use of Maalox for acid symptoms - Sent in stool sample for Cologuard test, initial result undeterminable, repeated test - Denies blood in stool - Reports anxiety about cancer (rectal, throat) due to current symptoms - Uses 5 mg gummy at night to relax, drinks beer, smokes marijuana for symptom relief Problem List[1] Allergies[2] Medications Ordered Prior to Encounter[3] Review of Systems Constitutional: Negative for appetite change, chills and diaphoresis. HENT: Negative for ear discharge, ear pain and facial swelling. Gastrointestinal: Positive for abdominal pain, diarrhea and rectal pain. Negative for anal bleeding, blood in stool and constipation. Genitourinary: Negative for enuresis, flank pain, frequency and genital sores. Skin: Negative for rash. Neurological: Negative for light-headedness and numbness. OBJECTIVE Vitals: 02/26/25 1317 BP: 126/74 BP Location: Left arm Patient Position: Sitting BP Cuff Size: Adult Pulse: (!) 120 Resp: 20 Temp: 97.2 ??F (36.2 ??C) TempSrc: Oral SpO2: 98% Weight: 182 lb (82.6 kg) Height: 5' 8.5 (1.74 m) Physical Exam Constitutional: General: He is not in acute distress. Appearance: Normal appearance. He is not ill-appearing, toxic-appearing or diaphoretic. Cardiovascular: Rate and Rhythm: Normal rate. Pulmonary: Effort: Pulmonary effort is normal. Abdominal: Palpations: Abdomen is soft. Tenderness: There is abdominal tenderness. Comments: Mild epigastric and left lower quadrant tenderness. Neurological: Mental Status: He is alert. Assessment/Plan Assessment/Plan Diagnoses and all orders for this visit: Diarrhea, unspecified type Reflux gastritis - Referral to Gastroenterology; Future - Stool - Gastrointestinal panel; Future - famotidine (Pepcid) 20 MG tablet; Take 1 tablet (20 mg) by mouth 2 times daily. Left lower quadrant pain - CT Abdomen Pelvis w/ and w/o Contrast; Future Diarrhea, unspecified type: - Diarrhea possibly related to infection or parasitic exposure, given recent river swimming and onset after January 2025. Differential includes infectious gastroenteritis and other causes. - Ordered stool workup to evaluate for infectious or parasitic etiology. Advised to complete stool sample collection and submit to lab as soon as possible. Reflux gastritis: - Chronic reflux gastritis with persistent symptoms despite long-term omeprazole use. Risk for complications such as Ahn's esophagus and esophagitis discussed. - Prescribed famotidine for symptom control. Recommended head-of-bed elevation during sleep, avoidance of eating 3 hours prior to bedtime, and elimination of dietary irritants (caffeinated beverages,mint, soda). Advised to avoid Maalox and implement lifestyle modifications. Referral to slide forming machine operator for further evaluation. Recommended upper endoscopy to assess for complications. Left lower quadrant pain: - Left lower quadrant pain possibly due to diverticulitis or small bowel colitis. - Ordered CT scan of the abdomen to evaluate for diverticulitis or other pathology. Advised againstempiric antibiotic therapy unless indicated by imaging or clinical findings. This note was drafted using Ambient (AI) technology. The patient/patient's guardian has been informed and has consented to the use of this technology: Yes [1] Patient Active Problem List Diagnosis Anxiety Backache Depressive disorder BHAVIK (generalized anxiety disorder) Cannabis dependence (HCC) Long-term current use of opiate analgesic [2] Allergies Allergen Reactions Pregabalin [3] Current Outpatient Medications on File Prior to Visit Medication Sig Dispense Refill albuterol (ProAir HFA) 108 (90 Base) MCG/ACT inhaler Inhale 2 puffs in the morning, at noon, in theevening, and at bedtime. 18 g 1 atorvastatin (Lipitor) 20 MG tablet TAKE ONE TABLET DAILY 90 tablet 3 Blood Pressure kit Apply 1 not specified by [facility].(Non-drug; combo) route every day cyclobenzaprine (Flexeril) 5 MG tablet Take 1 tablet (5 mg) by mouth at bedtime. 30 tablet 0 diazePAM (Valium) 5 MG tablet FLUoxetine (PROzac) 20 MG capsule Take 20 mg by mouth 2 times daily. hydrOXYzine HCl (Atarax) 25 MG tablet take 1 tablet (25MG) by oral route every 6 - 8 hours lisinopril 20 MG tablet TAKE ONE TABLET BY MOUTH EVERY DAY 90 tablet 11 omeprazole (PriLOSEC) [address] capsule TAKE ONE CAPSULE EVERY DAY 90 capsule 1 QUEtiapine (SEROquel) 25 MG tablet TAKE 1 TABLET BY MOUTH TWICE A DAY NEEDED FOR AGITATION 60 tablet 0 SUMAtriptan (Imitrex) 25 MG tablet TAKE 1 TABLET BY MOUTH AT ONSET OF MIGRAINE. MAY REPEAT ONCE AFTER 2 HOURS IF NEEDED. DO NOT EXCEED TWO TABLETS IN 24 HOURS. 30 tablet 0 topiramate (Topamax) 25 MG tablet TAKE ONE TABLET EVERY DAY 30 tablet 5 [DISCONTINUED] lidocaine (Lidoderm) 5 % patch Apply 1 patch topically Once per day. Remove & discard patch within 12 hours or as directed by . 30 patch 11 [DISCONTINUED] topiramate (Topamax) 25 MG tablet TAKE ONE TABLET EVERY DAY 30 tablet 3 No current facility-administered medications on file prior to visit. documented in this encounter Plan of Treatment Scheduled Orders Name Type Priority Associated Diagnoses Orde r Schedule Stool - Gastrointestinal panel Microbiology Routine Reflux gastritis Expected: 02/26/2025 (Approximate), Expires: 02/26/2026 CT Abdomen Pelvis w/ and w/o Contrast Imaging Urgent Left lower quadrant pain Expected: 02/26/2025, Expires: 02/26/2026 Scheduled Referrals Name Type Priority Associated Diagnoses Order Schedule Referral to Gastroenterology Outpatient Referral Routine Reflux gastritis Expected: 02/26/2025 (Approximate), Expires: 02/26/2026 documented as of this encounter Visit Diagnoses Diagnosis Diarrhea, unspecified type- Primary Reflux gastritis Other specified gastritis without mention of hemorrhage Left lower quadrant pain Abdominal pain, left lower quadrant documented in this encounter Additional Health Concerns Assessment Noted Time PHQ-9 Depression Total Score: 4 09/30/19 23 9:25 AM EDT documented as of this encounter Care Teams Yard Loader Operator Relationship Specialty Start Date End Date Dasia Gar MD [address] [place] [id number] PCP - General Family Medicine 04/21/12 documented as of this encounter
--- OUTSIDE RECORDS SUMMARY | 2025-02-27 10:52 | XMS_ITS | Encounter Summary ---
Author Organization [employer] Address [address] [facility] 7 [place] [address] Care Team Providers Care Latin Dancer Name Role Phone Dasia Gar MD Primary Care Provider Reason for Visit * Reason Onset Date Comments Appointment Request 02/26/2025 Encounter Details Date Type Department Care Team ([facility] Contact Info) Description 02/26/2025 Telephone [facility] CHC MED & PEDS [address] [place] [address] Eduardo Turner MD [address] [place] [address] Appointment Request Social History Tobacco Use Types Packs/Day Years [...] encounter Miscellaneous Notes * Telephone Encounter - Redd Nassar - 02/26/2025 3:36 PM EDT Pt VM full outgoing call to pt to thomas active appointment request for today's visit on 02/26/25 Michael. Please thomas the following appointment on next [facility] Follow up in about 4weeks (around 03/26/2025) for Abdominal pain/Gastritis. . documented in this encounter Plan of Treatment Not on file documented as of this encounter Visit Diagnoses Not on filedocumented in this encounter Additional Health Concerns Assessment Noted Time PHQ-9 Depression Total Score: 4 09/30/19 23 9:25 AM EDT documented as of this encounter Care Teams Latin Dancer Relationship Specialty Start Date End Date Dasia Gar MD [address] [place] [id number] PCP - General Family Medicine 04/21/12 documented as of this encounter
--- OUTSIDE RECORDS SUMMARY | 2025-02-27 10:52 | XMS_ITS | Encounter Summary ---
Author Organization [employer] Address [address] [facility] [facility] [address] [place] [address] Care Team Providers Care Creative Producer Name Role Phone Dasia Gar MD Primary Care Provider [phone] Reason for Visit * Reason Comments Med Refill Encounter Details Date Type Department Care Team ([facility] st Contact Info) Description 05/04/2023 Refill [facility]C MED & PEDS [address] [place] [address] Anahi Parker, ANP [address] [place] [address] Low back pain without sciatica, unspecified back [...] as of this encounter Plan of Treatment Not on file documented as of this encounter Visit Diagnoses Diagnosis Low back pain without sciatica, unspecified back pain laterality, unspecified chronicity documented in this encounter Additional Health Concerns Assessment Noted Time PHQ-9 Depression Total Score: 4 09/30/19 23 9:25 AM EDT documented as of this encounter Care Teams Creative Producer Relationship Specialty Start Date End Date Dasia Gar MD [address] [place] [id number] PCP - General Family Medicine 04/21/12 documented as of this encounter
--- OUTSIDE RECORDS SUMMARY | 2025-02-27 10:52 | XMS_ITS | Encounter Summary ---
Author Organization [employer] Address [address] [facility] [address]t [place] [address] Care Team Providers Care Impregnating Machine Operator Name Role Phone Dasia Gar MD Primary Care Provider [phone] Reason for Visit * Reason Comments Med Refill Encounter Details Date Type Department Care Team ([facility] Contact Info) Description 02/24/2025 Refill [facility]C MED & PEDS [address] [place], [place] [phone] Eduardo Turner MD [address] [place] [address] Migraine without aura, not intractable, without status migrainosus Social History Tobacco Use Types Packs/Day Years [...] as of this encounter Visit Diagnoses Diagnosis Migraine without aura, not intractable, without status migrainosus documented in this encounter Additional Health Concerns Assessment Noted Time PHQ-9 Depression Total Score: 4 09/30/19 23 9:25 AM EDT documented as of this encounter Care Teams Impregnating Machine Operator Relationship Specialty Start Date End Date Dasia Gar MD [address] [place] [id number] PCP - General Family Medicine 04/21/12 documented as of this encounter
--- OUTSIDE RECORDS SUMMARY | 2025-02-27 10:52 | XMS_ITS | Encounter Summary ---
Author Organization [employer] Address [address] [facility] 7t [place] [address] Care Team Providers Care Refinery Operator Vapor Recovery Unit Name Role Phone Dasia Gar MD Primary Care Provider [phone] Reason for Visit * Reason Comments Med Refill Encounter Details Date Type Department Care Team ([facility] st Contact Info) Description 05/04/2023 Refill [facility] MED & PEDS [address] [place] [address] Dasia Gar MD 505 [place] [address] Low back pain without sciatica, unspecified back [...] documented as of this encounter Care Teams Refinery Operator Vapor Recovery Unit Relationship Specialty Start Date End Date Dasia Gar MD [address] [place] [phone] PCP - General Family Medicine 04/21/12 documented as of this encounter
--- OUTSIDE RECORDS SUMMARY | 2025-02-27 10:52 | XMS_ITS | Encounter Summary ---
Author Organization [employer] Address [address] 7[address] [place] [address] Care Team Providers Care Hadoop Java Developer Name Role Phone Dasia Gar MD Primary Care Provider [phone] Encounter Details Date Type Department Care Team (Latest Contact Info) Description 02/26/2025 Travel Social History Tobacco Use Types Packs/Day [...] documented as of this encounter Care Teams Hadoop Java Developer Relationship Specialty Start Date End Date Dasia Gar MD [address] [place] [phone] PCP - General Family Medicine 04/21/12 documented as of this encounter
--- OUTSIDE RECORDS SUMMARY | 2025-02-27 10:52 | XMS_ITS | Encounter Summary ---
Author Organization [employer] Address [address] 7[address] [place] [address] Care Team Providers Care Shop Estimator Name Role Phone Dasia Gar MD Primary Care Provider [phone] Reason for Visit * Reason Comments Med Refill Encounter Details Date Type Department Care Team ([facility] Contact Info) Description 09/23/2024 Refill [facility]S [address] [place] [address] Dasia Gar MD [address] [place] [address] Social History Tobacco Use Types Packs/Day Years [...] documented as of this encounter Care Teams Shop Estimator Relationship Specialty Start Date End Date Dasia Gar MD [address] [place] [id number] PCP - General Family Medicine 04/21/12 documented as of this encounter
--- OUTSIDE RECORDS SUMMARY | 2025-02-27 10:52 | XMS_ITS | Encounter Summary ---
Author Organization [employer] Address [address] [facility] 7t [place] [address] Care Team Providers Care Sales Representative Facility Services Name Role Phone Dasia Gar MD Primary Care Provider [phone] Reason for Visit * Reason Onset Date Comments Nurse Triage 02/22/2025 Encounter Details Date Type Department Care Team ([facility] st Contact Info) Description 02/22/2025 Telephone C [facility] 505 [place] [address] Dasia Gar MD [address] [place] [address] Nurse Triage Social History Tobacco Use Types Packs/Day Years [...] encounter Miscellaneous Notes * Telephone Encounter - Madiha Ferreira RN - 02/22/2025 1:41 PM EDT TC to pt to triage for heartburn. Pt states that for the past week he has been experiencing worsening heartburn. Pt has burning feeling in throat and mouth. Pt trying to take in cold fluids to help, Prilosec not helping, took an extra dose today, no symptoms. Pt states gas cervantes as well. Experiencing stomach pain and waking up in the middle of the night with pain. Denies SOB, chest pain, pt able to have conversation without difficulty. Pt states he feels more constipated but when using restroom, has looser stools. Pt has a history of GERD. Pt scheduled in [facility] with Dr. Turner at 3:15 pm. Pt agrees to plan. Protocol Used: Abdominal Pain - Upper (Adult) Protocol-Based Disposition: See in Office or Video Visit Today Video visit offered and caller accepted Positive Triage Questions: * Patient wants to be seen * Moderate pain that comes and goes (cramps) lasts > 24 hours * All higher-acuity triage questions were negative * Telephone Encounter - Ivana Patel - 02/22/2025 1:21 PM EDT Symptom: Heartburn - Caller Reports Outcome: Transfer to a nurse or provider NOW! Reason: Heaviness on chest The caller accepted this outcome. Contact pt at [phone] documented in this encounter Plan of Treatment Not on file documented as of this encounter Visit Diagnoses Not on filedocumented in this encounter Additional Health Concerns Assessment Noted Time PHQ-9 Depression Total Score: 4 09/30/19 23 9:25 AM EDT documented as of this encounter Care Teams Sales Representative Facility Services Relationship Specialty Start Date End Date Dasia Gar MD [address] [place] [id number] PCP - General Family Medicine 04/21/12 documented as of this encounter
--- OUTSIDE RECORDS SUMMARY | 2025-02-27 10:52 | XMS_ITS | Encounter Summary ---
Author Organization [employer] Address [address] 7[address] [place] [address] Care Team Providers Care Operations Specialists Name Role Phone Dasia Gar MD Primary Care Provider [phone] Reason for Visit * Reason Onset Date Comments Med Refill 04/02/2024 Encounter Details Date Type Department Care Team ([facility] st Contact Info) Description 04/02/2024 Telephone [facility] MEDICINE [address] [place] [address] Dasia Gar MD [address] [place] [address] Med Refill Social History Tobacco Use Types [...] enough money to get more: Never True 12/ 11/2022 Transportation Answer Date Recorded In the [...] 12 hr tablet To be sent to: [facility] documented in this encounter Plan of Treatment Not on file documented as of this encounter Visit Diagnoses Not on filedocumented in this encounter Additional Health Concerns Assessment Noted Time PHQ-9 Depression Total Score: 4 09/30/19 23 9:25 AM EDT documented as of this encounter Care Teams Operations Specialists Relationship Specialty Start Date End Date Dasia Gar MD [address] [place] [id number] PCP - General Family Medicine 04/21/12 documented as of this encounter
--- OUTSIDE RECORDS SUMMARY | 2025-02-27 10:52 | XMS_ITS | Encounter Summary ---
Author Organization [employer] Address [address] 7[address] [place] [address] Care Team Providers Care Senior Research Fellow Name Role Phone Dasia Gar MD Primary Care Provider [phone] Reason for Visit * Reason Onset Date Comments Med Refill 10/08/2024 Encounter Details Date Type Department Care Team ([facility] st Contact Info) Description 10/08/[address] [facility] MEDICINE [address] [place] [address] Dasia Gar MD [address] [place] [address] Med Refill Social History Tobacco Use Types [...] enough money to get more: Never True 02/ 09/2024 Transportation Answer Date Recorded In the [...] encounter Miscellaneous Notes * Telephone Encounter - Amalia Ortega - 10/08/2024 9:19 AM EDT TC from pt requesting medication refill. Medications needing refill : morphine CR (MS Contin) 15 MG 12 hr tablet [facility] be [facility] to: [facility] documented in this encounter Plan of Treatment Not on file documented as of this encounter Visit Diagnoses Not on filedocumented in this encounter Additional Health Concerns Assessment Noted Time PHQ-9 Depression Total Score: 4 09/30/19 23 9:25 AM EDT documented as of this encounter Care Teams Senior Research Fellow Relationship Specialty Start Date End Date Dasia Gar MD [address] [place] [phone] PCP - General Family Medicine 04/21/12 documented as of this encounter
--- OUTSIDE RECORDS SUMMARY | 2025-02-27 10:52 | XMS_ITS | Encounter Summary ---
Author Organization [employer] Address [address] 7[address] [place] [address] Care Team Providers Care Hunter Name Role Phone Dasia Gar MD Primary Care Provider [phone] Reason for Visit * Reason Onset Date Comments Reschedule 08/10/2023 Encounter Details Date Type Department Care Team ([facility] st Contact Info) Description 08/10/2023 Telephone [facility] [address] [place] [address] Dasia Gar MD [address] [place] [address] Reschedule Social History Tobacco Use Types Packs/Day [...] AM EDT Tc from pt requesting r/s PHARMACIST appt documented in this encounter Plan of Treatment Not on file documented as of this encounter Visit Diagnoses Not on filedocumented in this encounter Additional Health Concerns Assessment Noted Time PHQ-9 Depression Total Score: 4 09/30/19 23 9:25 AM EDT documented as of this encounter Care Teams Hunter Relationship Specialty Start Date End Date Dasia Gar MD [address] [place] [id number] PCP - General Family Medicine 04/21/12 documented as of this encounter
--- OUTSIDE RECORDS SUMMARY | 2025-02-27 10:52 | XMS_ITS | Clinical Summary ---
Author Organization [employer] Address [address] [facility] 7t [place] [address] Care Team Providers Care Mountain Services Manager Name Role Phone Dasia Gar MD Primary Care Provider [phone] Allergies Active Allergy Reactions Criticality Noted Date Comments Pregabalin 01/06/2016 Medications hydrOXYzine HCl (Atarax) 25 MG tablet take 1 tablet (25MG) by oral route every 6 - 8 hours Active Blood Pressure kit Apply [address] [facility].(Non-drug ; combo) route every day 11/19/19 21 Active lisinopril 20 MG tabletIndicati ons:Dizziness TAKE ONE TABLET BY MOUTH EVERY DAY 90 tablet 11 07/31/19 25 Active albuterol (ProAir HFA) 108 (90 Base) MCG/ACT inhalerIndicat ions:Symptom of wheezing Inhale 2 puffs in the morning, at noon, in the evening, and at bedtime. 18 g 1 09/04/19 25 Active atorvastatin (Lipitor) 20 MG tablet TAKE ONE TABLET DAILY 90 tablet 3 10/06/19 25 Active diazePAM (Valium) 5 MG tablet 10/09/19 25 Active FLUoxetine (PROzac) 20 MG capsule Take 20 mg by mouth 2 times daily. 09/21/19 25 Active SUMAtriptan (Imitrex) 25 MG tablet TAKE 1 TABLET BY MOUTH AT ONSET OF MIGRAINE. MAY REPEAT ONCE AFTER 2 HOURS IF NEEDED. DO NOT EXCEED TWO TABLETS IN 24 HOURS. 30 tablet 11/22/19 25 Active omeprazole (PriLOSEC) [address] capsuleIndicat ions:Gastroeso phageal reflux disease without esophagitis TAKE ONE CAPSULE EVERY DAY 90 capsule 1 12/06/19 25 Active QUEtiapine (SEROquel) 25 MG tablet TAKE 1 TABLET BY MOUTH TWICE A DAY NEEDED FOR AGITATION 60 tablet 12/27/19 25 Active cyclobenzaprin e (Flexeril) 5 MG tablet Take 1 tablet (5 mg) by mouth at bedtime. 30 tablet 02/22/20 25 025 Active topiramate (Topamax) 25 MG tabletIndicati ons:Migraine without aura, not intractable, without status migrainosus TAKE ONE TABLET EVERY DAY 30 tablet 5 02/26/20 25 Active famotidine (Pepcid) 20 MG tabletIndicati ons:Reflux gastritis Take 1 tablet (20 mg) by mouth 2 times daily. 60 tablet 11 02/27/20 25 026 Active buPROPion SR (Wellbutrin SR) 200 MG 12 hr tablet take 1 tablet (200MG) by oral route every day 025 Discontinued naloxone (Narcan) 4 mg/0.1 mL nasal spray spray 0.1 milliliter by intranasal route in 1 nostril may repeat dose every 2-3 minutes as needed alternating nostrils with each dose 01/23/20 025 Discontinued lidocaine (Lidoderm) 5 % patchIndicatio ns:Chronic right shoulder pain Apply 1 patch topically Once per day. Remove & discard patch within 12 hours or as directed by MD. 30 patch 11 06/20/19 025 Discontinued(T herapy completed) morphine CR (MS Contin) 15 MG 12 hr tabletIndicati ons:Low back pain without sciatica, unspecified back pain laterality, unspecified chronicity Take 1 tablet (15 mg) by mouth 2 times daily. Do not crush, chew, or split. 56 tablet 09/12/19 25 025 Discontinued morphine CR (MS Contin) 15 MG 12 hr tabletIndicati ons:Low back pain without sciatica, unspecified back pain laterality, unspecified chronicity Take 1 tablet (15 mg) by mouth 2 times daily. Do not crush, chew, or split. Do not start before October 15, 2024. 56 tablet 10/16/19 25 025 Discontinued hydrOXYzine pamoate (Vistaril) 25 MG capsule Take 25 mg by mouth 2 times daily. 08/30/19 25 10/03/2 025 Discontinued(D uplicate order (will not trigger notification to Pharmacy)) topiramate (Topamax) 25 MG tabletIndicati ons:Migraine without aura, not intractable, without status migrainosus TAKE ONE TABLET EVERY DAY 30 tablet 3 10/23/19 25 025 Discontinued cyclobenzaprin e (Flexeril) 10 MG tablet TAKE ONE TABLET TWICE DAILY 60 tablet 3 11/02/19 25 025 Discontinued Active Problems Problem Noted Date Diagnosed Date Long-term current use of opiate analgesic 2024 BHAVIK (generalized anxiety disorder) 05/11/2022 Cannabis dependence 05/11/2022 Anxiety 09/27/2013 Backache 09/27/2013 Depressive disorder 09/27/2013 Resolved Problems Problem Noted Date Diagnosed Date Resolved Date Recurrent major depressive disorder 05/11/2022 06/20/2024 Encounters Date Type Department Care Team Description 02/26/2025 1:20 PM EDT Office Visit [facility] MED & PEDS [address] [place] [address] Eduardo Turner MD Diarrhea, unspecified type (Primary Dx); Reflux gastritis; Left lower quadrant pain 02/26/2025 Telephone [facility] MED & PEDS [address] [place] [address] Eduardo Turner MD Appointment Request 02/26/2025 Travel 02/25/2025 Telephone [facility] MED & PEDS [address] [place] [address] Dasia Gar MD Nurse Triage 02/24/2025 Refill [facility] MED & PEDS [address] [place] [address] Eduardo Turner MD Migraine without aura, not intractable, without status migrainosus 02/22/2025 Telephone [facility] MEDICINE [address] [place] [address] Dasia Gar MD No Show 02/22/2025 Telephone [facility] MED & PEDS [address] [place] [address] Dasia Gar MD Nurse Triage 02/21/2025 Orders Only [facility] PED[facility] [address] [place] [address] Dasia Gar MD 02/21/2025 Telephone [facility] MEDICINE [address] [place] [address] Dasia Gar MD Med Refill 02/15/2025 Refill [facility] MED & PEDS [address] [place] [address] Dasia Gar MD 02/08/2025 11:30 AM EDT Office Visit [facility] PED[facility] [address] [place] [address] Dasia Gar MD Irritable bowel syndrome, unspecified type (Primary Dx) 02/08/2025 Orders Only [facility] PED[facility] [address] [place] [address] Cynthia Zavala MA 02/08/2025 Travel 02/07/2025 Telephone [facility] MED [facility] PEDS [address] [place] [address] Dasia Gar MD Nurse Triage 01/28/2025 Telephone [facility] PED[facility] [address] [place] [address] Dasia Gar MD Nurse Triage 01/24/2025 Telephone [facility] PED[facility] [address] [place] [address] Dasia Gar MD Nurse Triage 12/26/2024 Refill [facility] PED[facility] [address] [place] [address] Dasia Gar MD 12/04/2024 Refill [facility] & PEDS [address] [place] [address] BolandMike Norris MD Gastroesophageal reflux disease without esophagitis 11/29/2024 Orders Only [facility]S [address] [place] [address] Dasia Gar MD Bilateral hip pain (Primary Dx) 11/29/2024 Telephone [facility] MED & PEDS [address] [place] [address] Dasia Gar MD Referral from Last 3 Months Immunizations Immunization Administration Dates Next Due Influenza injectable quadriv alent IIV4 with preservative 04/07/2015 Moderna Covid-19 Vaccine 12+ 05/17/2021 Pfizer Covid-19 Vaccine 12+ 10/09/2020, Tdap 12/19/2015 Family History Medical History Relation Name Comments Macular degeneration Mother Relation Name Status Comments Mother Social History Tobacco Use Types Packs/Day Years [...] Mass Index 27.27 02/26/2025 1:17 PM EDT Plan of Treatment Health Maintenance Due Date Last Done Comments CT Colonography 1964 Colonoscopy 1964 Colorectal Cancer Screening 1965 FIT DNA/Cologuard 1964 FIT 1964 FOBT 1965 Sigmoidoscopy 1965 Pneumococcal Vaccine: 50+ Years (1 of 1 - PCV) 2014 Zoster Vaccines (1 of 2) 2014 Depression Screening 09/30/2023 09/29/2022, 09/29/2022 COVID-19 Vaccine (4 - 2024-2 6 season) 2025 05/17/2021, 10/09/2020, 09/12/2020 Influenza Vaccine (#1) 2025 04/07/2015 SDOH Screening 06/13/2025 06/13/2024 Alcohol/Substance Use Screening 06/20/2025 06/20/2024 Disability Screening 10/05/2025 10/05/2024 DTaP/Tdap/Td Vaccines (2 - T d or Tdap) 12/18/2025 12/19/2015 Tobacco Screening 02/26/2026 02/26/2025 Lipid Panel 12/04/2027 12/03/2022, 11/25/2021 RSV Patients and Patients Aged 60 years or older (1 - 1-dose 75+ series) 2039 HIV Screening Completed 08/16/2024 Hepatitis C Screening Completed 08/16/2024 HIB Vaccines Aged Out No longer eligi [...] patient's age to complete this topic Meningococcal B Vaccine Aged Out No l onger eligible based on patient's age to complete [...] Procedure Name Priority Date/Time Associated Diagnosis Comments HEPATITIS C AB W/REFL TO HCV RNA, QN, PCR Routine 08/16/2024 8:52 AM EDT Screening for STD (sexually transmitted disease) HIV 1/2 ANTIGEN/ANTIBODY, FOURTH GENERATION W/RFL Routine 08/16/2024 8:52 AM EDT Screening for STD (sexually transmitted disease) LIPID PANEL, STANDARD Routine 12/03/2022 9:33 AM EDT Primary hypertension from Last 3 Months or Most Recently Relevant to Health Maintenance Results * Hepatitis C Antibody with Reflex to HCV, RNA, Quantitative, Real-Time PCR (08/16/2024 8:52 AM EDT) Hepatitis C Antibody Nonreactive Nonreactive [facility] Comment:Antibodies to HCV no t detected; does not exclude early acuteHCV infection. Blood Venous blood specimen / Unknown 08/16/2024 8:52 AM EDT 08/16/2024 2:37 PM EDT us Dasia Gar MD LAB BLOOD ORDERABLES Final Resul t [facility] [address] [place] [address] [phone] * HIV-1/2 Antigen and Antibodies, Fourth Generation, with Reflexes (08/16/2024 8:52 AM EDT) HIV AB/AG Nonreactive Nonreactive [facility] Comment:HIV-1 p24 Ag and/or HIV-1/HIV-2 Ab not detected.A test result that is nonreactive does not exclude thepossibility of exposure to or infection with HIV-1 and/orHIV-2. Nonreactive results in this assay for individualswith prior exposure to HIV-1 and/or HIV-2 may be due toantigen and antibody levels that are below the limit ofdetection of this assay.The [employer] HIV Ag/Ab Combo assay result andsupplemental assay results should be interpreted inconjunction with the patient's clinical presentation,history and other laboratory results. If the results areinconsistent with clinical evidence, additional testing issuggested to confirm the result. Blood Venous blood specimen / Unknown 08/16/2024 8:52 AM EDT 08/16/2024 2:37 PM EDT us Dasia Gar MD LAB BLOOD ORDERABLES Final Resul t [facility] [address] [place] [address] [phone] * Lipid Panel, Standard (12/03/2022 9:33 AM EDT) Triglycerides 102 mg/dL [facility] Comment:Desirable Triglyceri de: less than 150 mg/dLBorderline High Triglyceride 150-199 mg/dLHigh Triglyceride: 200-499 mg/dLVery High Triglyceride: greater than or equal to 5OO mg/dL Cholesterol 136 mg/dL [facility] Comment:Desirable Cholestero l: less than 200 mg/dLBorderline High Cholesterol: 200-239 mg/dLHigh Cholesterol: greater than 239 mg/dL LDL Cholesterol Calculated 74 mg/dl [facility] Comment:Desirable LDL: less than 100 mg/dLNear Optimal/Above Optimal LDL: 110- 129 mg/dLBorderline High LDL: 130-159 mg/dLHigh LDL: 160-189 mg/dLVery High LDL: greater than or equal to 190 mg/dL HDL Cholesterol 42 mg/dL [facility] Comment:Desirable HDL: great er than 40 mg/dL Note: This HDL assay may give artificially low results in patients with liver disease. Blood Venous blood specimen / Unknown 12/03/2022 9:33 AM EDT 12/03/2022 2:12 PM EDT Dasia Gar MD LAB BLOOD ORDERABLES Final Resul t [facility] [address] [place] [address] [phone] from Last 3 Months or Most Recently Relevant to Health Maintenance Insurance [facility] MEDICARE REPLACEMENT * Guarantor: Srinath Carey Account Type Relation to Patient Date of Phone Billing Address Personal/Family Self [address] [facility] Leanna GEETHA Care Teams Mountain Services Manager Relationship Specialty Start Date End Date Dasia Gar MD [address] [place] [phone] PCP - General Family Medicine 04/21/12
--- OUTSIDE RECORDS SUMMARY | 2025-02-27 10:52 | XMS_ITS | Encounter Summary ---
Author Organization [employer] Address [address] [facility] 7t [place] [address] Care Team Providers Care Equipment Service Engineer Name Role Phone Dasia Gar MD Primary Care Provider [phone] Reason for Visit * Reason Onset Date Comments Nurse Triage 02/25/2025 Encounter Details Date Type Department Care Team ([facility] st Contact Info) Description 02/25/2025 Telephone [facility] [address] [place] [address] Dasia Gar MD [address] [place] [address] Nurse Triage Social History Tobacco Use Types [...] encounter Miscellaneous Notes * Telephone Encounter - Maricel Davis RN - 02/25/2025 10:38 AM EDT Tc returned to pt who called with a complaint of heart burn pt states that since he had covid in January his GI hasn't been the same and he has a lot of stomach acid states he taking Mylanta with good effect ( Mylanta can cause white stool). Pt denies any headache, blurred vision, left arm pain states it is not cardiac it is acid related. Patient also reports he had stool that was white in color the other day since then has been normal in color. Patient states he can not come into the walk [facility] at this time and was booked for a sick on site tomorrow in [place]. Advised pt if he develops any of the symptoms states above to go to ED for cardiac assessment. Patient states that these symptoms of acid are daily from 1 - 4:30 and if no relief from Mylanta may come to the walk in [place] this afternoon. Multiple (2) protocols were used on this call. Disposition for Call: See in Office or Video Visit Today Protocol Used: Stools - Unusual Color (Adult) Protocol-Based Disposition: See in Office or Video Visit Today Positive Triage Questions: * Stool is light kang or whitish and unexplained * Patient wants to be seen * Unusual stool color probably from food or medicine * All higher-acuity triage questions were negative Protocol Used: Boil (Skin Abscess) (Adult) Protocol-Based Disposition: See in Office or Video Visit Today or Tomorrow Video visit offer not recorded Positive Triage Questions: * 2 or more boils * Boils are a recurrent problem for this patient (patient with no boil now) * All higher-acuity triage questions were negative * Telephone Encounter - Hugh Kendall - 02/25/2025 9:59 AM EDT Symptom: Heartburn - Caller Reports Outcome: Transfer to a nurse or provider NOW! Reason: Heaviness on chest The caller accepted this outcome. Contact pt at [phone] documented in this encounter Plan of Treatment Not on file documented as of this encounter Visit Diagnoses Not on filedocumented in this encounter Additional Health Concerns Assessment Noted Time PHQ-9 Depression Total Score: 4 09/30/19 23 9:25 AM EDT documented as of this encounter Care Teams Equipment Service Engineer Relationship Specialty Start Date End Date Dasia Gar MD [address] [place] [phone] PCP - General Family Medicine 04/21/12 documented as of this encounter
--- OUTSIDE RECORDS SUMMARY | 2025-02-27 10:52 | XMS_ITS | Encounter Summary ---
Author Organization [employer] Address [address] [facility] [address] [place] [address] Care Team Providers Care Filament Welder Name Role Phone Dasia Gar MD Primary Care Provider [phone] Reason for Visit * Reason Onset Date Comments Med Refill 02/21/2025 Encounter Details Date Type Department Care Team ([facility] st Contact Info) Description 02/21/2025 Telephone [facility] MED[facility]INE [address] [place] [address] Dasia Gar MD [address] [place] [address] Med Refill Social History Tobacco Use Types [...] encounter Miscellaneous Notes * Telephone Encounter - Dasia Gar MD - 02/21/2025 11:17 AM EDT sent * Telephone Encounter - Halima Medina - 02/21/2025 9:16 AM EDT TC from pt requesting medication refill. Medications needing refill : - cyclobenzaprine (Flexeril) 10 MG tablet To be sent to: - [facility] - [place] - [address] documented in this encounter Plan of Treatment Not on file documented as of this encounter Visit Diagnoses Not on filedocumented in this encounter Additional Health Concerns Assessment Noted Time PHQ-9 Depression Total Score: 4 09/30/19 23 9:25 AM EDT documented as of this encounter Care Teams Filament Welder Relationship Specialty Start Date End Date Dasia Gar MD [address] [place] [phone] PCP - General Family Medicine 04/21/12 documented as of this encounter
--- OUTSIDE RECORDS SUMMARY | 2025-02-27 10:52 | XMS_ITS | Encounter Summary ---
Author Organization [employer] Address 75 [facility] [address] 7t [place] [address] Care Team Providers Care Electromyographic Technician Name Role Phone Dasia Gar MD Primary Care Provider [phone] Reason for Visit * Reason Onset Date Comments No Show 02/22/2025 Encounter Details Date Type Department Care Team ([facility] st Contact Info) Description 02/22/2025 Telephone [facility] MEDICINE [address] [place] [address] Dasia Gar MD [address] [place] [address] No Show Social History Tobacco Use Types Packs/Day Years [...] encounter Miscellaneous Notes * Telephone Encounter - Perry Kelly - 02/22/2025 3:56 PM EDT No show 02/22/25 documented in this encounter Plan of Treatment Not on file documented as of this encounter Visit Diagnoses Not on filedocumented in this encounter Additional Health Concerns Assessment Noted Time PHQ-9 Depression Total Score: 4 09/30/19 23 9:25 AM EDT documented as of this encounter Care Teams Electromyographic Technician Relationship Specialty Start Date End Date Dasia Gar MD [address] [place] [address] PCP - General Family Medicine 04/21/12 documented as of this encounter
--- OUTSIDE RECORDS SUMMARY | 2025-02-27 10:52 | XMS_ITS | Encounter Summary ---
Author Organization [employer] Address [address] [facility] [address] 7[address] [place] [address] Care Team Providers Care Metal Sorter Name Role Phone Dasia Gar MD Primary Care Provider [phone] Reason for Visit * Reason Comments Med Refill Encounter Details Date Type Department Care Team ([facility] Contact Info) Description 02/15/2025 Refill [facility] MED & PEDS [address] [place] [address] Dasia Gar MD [address] [place] [address] Social History Tobacco Use Types Packs/Day Years [...] documented as of this encounter Care Teams Metal Sorter Relationship Specialty Start Date End Date Dasia Gar MD [address] [place] [address] PCP - General Family Medicine 04/21/12 documented as of this encounter
[2025-02-28 05:29] LABS: E. coli EAEC Not Detected (Not Detect.); E. coli EPEC Not Detected (Not Detect.); E. coli ETEC Not Detected (Not Detect.); E. coli STEC Not Detected (Not Detect.); Shigella sp./EIEC Not Detected (Not Detect.)
== END 2025-02-27 09:30 | disposition home or self-care (01) ==
LOC: HO.CHCLNP 09:29
PROVIDERS: Visit Provider Internal Medicine
DX: K29.60 Other gastritis without bleeding (principal)
CPT/HCPCS: 87507

== ENCOUNTER 2025-03-21 11:39 | Outpatient (REF) | payer MEDICARE, OTHER, SELFPAY ==
--- OUTSIDE RECORDS SUMMARY | 2025-03-21 10:15 | XMS_ITS | Encounter Summary ---
Author Organization [employer] Address [address] [place] [address] 7 [place] [address] Care Team Providers Care American Studies Professor Name Role Phone Elizabet Howell MD Primary Care Provider Reason for Referral * Consultation (Urgent) - Pending Review Specialty Diagnoses / Procedures Referred By Syl amin Referred To Contact Gastroenterology Diagnoses Chronic diarrhea Diverticulosis of colon Colon wall thickening Justine Murillo MD [address] [place] [address] Phone: tel: fax: Referral ID Status Reason Start Date Expiration Date Visits Requested Visits Authorized [id number] Pending Review Specialty Services Required 03/21/2026 1 1 Scheduling Instructions Please add CT scan abdomen report ( done 03-12 at [facility]), scanned in chart.I know he has been referred before but still hasn't heard and symptoms getting worse including diarrhea,weight loss etc.. Encounter Details Date Type Department Care Team ([facility] st Contact Info) Description 03/21/2025 10:15 AM EST Office Visit [facility] MED & PEDS [address] [place] [address] Justine Murillo MD [address] [place], [place] [phone] Chronic diarrhea (Primary Dx); Diverticulosis of colon; Colon wall thickening Social History Tobacco Use Types Packs/Day Years [...] Sign Reading Time Taken Comments Blood Pressure 142/80 03/21/2025 10:44 AM EST Pulse 100 03/21/2025 10:44 AM EST Temperature 36.4 C (97.6 F) 03/21/2025 10:44 AM EST Respiratory Rate 20 03/21/2025 10:44 AM EST Oxygen Saturation - - Inhaled Oxygen Concentration - - Weight 77.1 kg (170 lb) 03/21/2025 10:44 AM EST Height - - Body Mass Index 25.47 02/26/2025 1:17 PM EDT documented in this encounter Progress Notes * Justine Murillo MD - 03/21/2025 10:15 AM EST Subjective Patient ID: Srinath Carey is a 59 y.o. male who presents for chronic diarrhea. Srinath Carey, 59 years Chronic Diarrhea and Weight Loss Since January 2025, has had persistent, profuse watery diarrhea occurring hourly, including overnight, with urgency and burning sensation. Stool described as floating, yellow, foul-smelling, and sometimes black after taking Pepto Bismol. Denies blood in stool. Diarrhea worsens with any food or drink intake, including water, and is unaffected by dietary modifications such as limiting dairy and sugar. Reports excessive sweating, especially of the head and bottom. Has lost significant weight since January 2025, previously weighed 196 lbs. Unable to leave home due to severity of symptoms. No improvement with Imodium; discontinued use due to lack of effect. Pepto Bismol caused black stool, leading to discontinuation. No recent antibiotic use. No fever. No family history of inflammatory bowel disease or celiac disease. No recent travel outside the country; did swim in a river the day before a wedding in January 2025. Abdominal Pain Reports severe, constant pain in the side, stomach, and back, described as stabbing and burning. Pain prevents prolonged lying down and disrupts sleep. Suspects possible hernia due to pain and presence of scars from prior appendectomy. Recent CT scan of abdomen done 03-12-25 showed case of diverticul osis only.Stool culture revealed norovirus. COVID-19 and Norovirus Infection Contracted COVID-19 in January 2025, followed by norovirus infection three days after recovery from COVID-19. Opioid Cessation Stopped opioids cold turkey in July 2024 after long-term use of morphine (30 mg daily) and Percocet (10 mg daily since before 2014). [facility] Mother is anemic and under medical care. No known personal history of malignancy. Review of Systems Constitutional: Positive for unexpected weight change. Negative for activity change, chills and fever. Respiratory: Negative for cough, shortness of breath and wheezing. Cardiovascular: Negative for chest pain, palpitations and leg swelling. Gastrointestinal: Positive for diarrhea. Negative for abdominal pain, anal bleeding, blood in stooland vomiting. Endocrine: Negative for polydipsia and polyuria. Genitourinary: Positive for flank pain. Negative for decreased urine volume, difficulty urinating, dysuria, enuresis and hematuria. Musculoskeletal: Negative for arthralgias and gait problem. Skin: Negative for color change and rash. Neurological: Negative for dizziness and headaches. Hematological: Negative for adenopathy. Psychiatric/Behavioral: Negative for dysphoric mood, hallucinations, sleep disturbance and suicidalideas. The patient is not nervous/anxious. Objective BP (!) 142/80 (BP Location: Left arm, Patient Position: Sitting, BP Cuff Size: Adult) Pulse 100 Temp 97.6 ??F (36.4 ??C) (Oral) Resp 20 Wt 170 lb (77.1 kg) BMI 25.47 kg/m?? Physical Exam Vitals reviewed. Constitutional: General: He is not in acute distress. HENT: Head: Normocephalic. Nose: No congestion. Mouth/Throat: Mouth: Mucous membranes are moist. Pharynx: Oropharynx is clear. Eyes: General: No scleral icterus. Conjunctiva/sclera: Conjunctivae normal. Cardiovascular: Rate and Rhythm: Normal rate and regular rhythm. Heart sounds: Normal heart sounds. No murmur heard. Pulmonary: Effort: Pulmonary effort is normal. No respiratory distress. Breath sounds: Normal breath sounds. No wheezing. Abdominal: General: Bowel sounds are normal. There is distension. Palpations: There is no mass. Tenderness: There is abdominal tenderness. There is no guarding. Hernia: No hernia is present. Musculoskeletal: Cervical back: Normal range of motion. Skin: Coloration: Skin is pale. Findings: No rash. Neurological: Mental Status: He is alert. Psychiatric: Mood and Affect: Mood normal. Behavior: Behavior normal. Thought Content: Thought content normal. Judgment: Judgment normal. Assessment/Plan Diagnoses and all orders for this visit: Chronic diarrhea: - Chronic diarrhea is possibly associated with adverse effects from lisinopril and Lipitor. Differential diagnosis includes infectious etiologies (recent norovirus, COVID-19), medication-induced diarrhea, malabsorption, and possible underlying gastrointestinal pathology. Concern for significant weight loss and need to rule out malignancy or inflammatory bowel disease. - Discontinue lisinopril and Lipitor temporarily. Prescribed Bentyl up to 4 times daily to manage intestinal contractions. Continue Imodium as needed for symptomatic relief. Ordered stool studies including fecal calprotectin and parasite testing. Ordered laboratory evaluation including magnesium. Urgent referral to gastroenterology for further evaluation and colonoscopy. Advised to monitor blood pressure at home. Recommended limiting dietary sugar and continuing electrolyte replacement with Liquid IV. Provided copy of CAT scan results. Chronic diarrhea - Basic Metabolic Panel; Future - CBC auto differential; Future - Comprehensive Metabolic Panel; Future - Celiac Disease Diagnostic Panel; Future - C-reactive Protein; Future - Hepatic Function Panel; Future - TSH W/Reflex to FT4; Future - Sed Rate by Modified Westergren; Future - Magnesium; Future - Lipase; Future - Iron And Total Iron Binding Capacity; Future - Calprotectin, Stool; Future - C. Difficile Culture W/refl Toxin B, PCR, Isolate; Future - Ova and Parasites; Future - Leukocytes Stool Qualitative; Future Other orders - dicyclomine (Bentyl) 20 MG tablet; Take 1 tablet (20 mg) by mouth before breakfast, before lunch,before evening meal, and at bedtime. documented in this encounter Plan of Treatment Upcoming Encounters Date Type Department Care Team (Late st Contact Info) Description 05/20/2025 1:15 PM EST Office Visit [facility] MED & PEDS [address] [place] [address] Elizabet Howell MD [address] [place] [address] Scheduled Orders Name Type Priority Associated Diagnoses Orde r Schedule Basic Metabolic Panel Lab Routine Chronic diarrhea Expected: 03/21/2025 (Approximate), Expires: 03/21/2026 Comprehensive Metabolic Panel Lab Routine Chronic diarrhea Expected: 03/21/2025 (Approximate), Expires: 03/21/2026 Celiac Disease Diagnostic Panel Lab Routine Chronic diarrhea Expected: 03/21/2025, Expires: 03/21/2026 C-reactive Protein Lab Routine Chronic diarrhea Expected: 03/21/2025 (Approximate), Expires: 03/21/2026 Hepatic Function Panel Lab Routine Chronic diarrhea Expected: 03/21/2025 (Approximate), Expires: 03/21/2026 TSH W/Reflex to FT4 Lab Routine Chronic diarrhea Expected: 03/21/2025 (Approximate), Expires: 03/21/2026 Sed Rate by Modified Westergren Lab Routine Chronic diarrhea Expected: 03/21/2025, Expires: 03/21/2026 Magnesium Lab Routine Chronic diarrhea Expected: 03/21/2025, Expires: 03/21/2026 Lipase Lab Routine Chronic diarrhea Expected: 03/21/2025, Expires: 03/21/2026 Iron And Total Iron Binding Capacity Lab Routine Chronic diarrhea Expected: 03/21/2025, Expires: 03/21/2026 Calprotectin, Stool Lab Routine Chronic diarrhea Expected: 03/21/2025, Expires: 03/21/2026 C. Difficile Culture W/refl Toxin B, PCR, Isolate Lab Routine Chronic diarrhea Expected: 03/21/2025 (Approximate), Expires: 03/21/2026 Ova and Parasites Microbiology Routine Chronic diarrhea Expected: 03/21/2025 (Approximate), Expires: 03/21/2026 Leukocytes Stool Qualitative Lab Routine Chronic diarrhea Expected: 03/21/2025, Expires: 03/21/2026 Scheduled Referrals Name Type Priority Associated Diagnoses Order Schedule Referral to Gastroenterology Outpatient Referral Urgent Chronic diarrhea Diverticulosis of colon Colon wall thickening Expected: 03/21/2025 (Approximate), Expires: 03/21/2026 documented as of this encounter Procedures Procedure Name Priority Date/Time Associated Diagnosis Comments CBC WITH AUTO DIFFERENTIAL Routine 03/21/2025 11:41 AM EST Chronic diarrhea documented in this encounter Results * (ABNORMAL) CBC auto differential (03/21/2025 11:41 AM EST) White Blood Count 11.1(H) 4.8 - 10.8 X10*3/uL [facility] Red Blood Count 5.13 4.60 - 5.80 X10*6/uL [facility] Hemoglobin 15.3 14.0 - 18.0 g/dl [facility] Hematocrit 45.3 42.0 - 52.0 % [facility] Mean Corpuscular Volume 88.3 80.0 - 98.0 fL [facility] Mean Corpuscular Hemoglobin 29.8 27.0 - 33.0 pg [facility] Mean Corpuscular HGB Conc 33.8 31.0 - 36.0 g/dl [facility] Red Cell Distribution Width 11.9 11.0 - 16.0 % [facility] Platelet Count 320 160 - 400 X10*3/uL [facility] Mean Platelet Volume 8.3(L) 9.4 - 12.4 fL [facility] Neutrophils Percent Auto 71.1 45 - 73 % [facility] Imm Gran Pct Auto 0.4 0.0 - 0.4 % [facility] Lymphocytes Percent Auto 18.3(L) 20 - 40 % [facility] Monocytes Percent Auto 7.3 2 - 11 % [facility] Eosinophils Percent Auto 2.7 0 - 4 % [facility] Basophils Percent Auto 0.2 0 - 2 % [facility] NRBC Pct Auto 0.0 0.0 - 0.2 /100WBC [facility] Neutrophils Absolute Auto 7.9 2.0 - 8.3 x10*3/uL [facility] Imm Gran Abs Auto 0.05(H) 0.00 - 0.03 X10*3/uL [facility] Lymphocytes Absolute Auto 2.0 1.2 - 4.9 X10*3/uL [facility] Monocytes Absolute Auto 0.8 0.1 - 1.2 X10*3/uL [facility] Eosinophils Absolute Auto 0.3 0.0 - 0.4 X10*3/uL [facility] Basophils Absolute Auto 0.0 0.0 - 0.2 X10*3/uL [facility] NRBC Abs Auto 0.000 0.0 - 0.012 X10*3/uL [facility] Blood Venous blood specimen / Unknown 03/21/2025 11:41 AM EST 03/21/2025 1:56 PM EST us Justine Murillo MD LAB BLOOD ORDERABLES Final Re sult [facility] [address] [place] [address] [phone] documented in this encounter Visit Diagnoses Diagnosis Chronic diarrhea- Primary Diarrhea Diverticulosis of colon Diverticulosis of colon (without mention of hemorrhage) Colon wall thickening documented in this encounter Additional Health Concerns Assessment Noted Time PHQ-9 Depression Total Score: 4 09/30/19 23 9:25 AM EDT documented as of this encounter Care Teams American Studies Professor Relationship Specialty Start Date End Date Elizabet Howell MD [address] [place] [id number] PCP - General Family Medicine 03/06/25 documented as of this encounter
[2025-03-21 14:04] LABS: MANUAL DIFF FLAG NO
[2025-03-21 14:33] LABS: Hematocrit 45.3 % (42.0-52.0); Hemoglobin 15.3 g/dl (14.0-18.0); Imm Gran Abs Auto 0.05 X10*3/uL (0.00-0.03); Imm Gran Pct Auto 0.4 % (0.0-0.4); Lymphocytes Absolute Auto 2.0 X10*3/uL (1.2-4.9); Mean Corpuscular HGB Conc 33.8 g/dl (31.0-36.0); Mean Corpuscular Hemoglobin 29.8 pg (27.0-33.0); Mean Corpuscular Volume 88.3 fL (80.0-98.0); NRBC Abs Auto 0.000 X10*3/uL (0.0-0.012); NRBC Pct Auto 0.0 /100WBC (0.0-0.2); Platelet Count 320 X10*3/uL (160-400); Red Blood Count 5.13 X10*6/uL (4.60-5.80); White Blood Count 11.1 X10*3/uL (4.8-10.8)
--- OUTSIDE RECORDS SUMMARY | 2025-03-21 14:47 | XMS_ITS | Encounter Summary ---
Author Organization [employer] Address [address] [facility] [address] [place] [address] Care Team Providers Care Zipper Cutter Name Role Phone Elizabet Howell MD Primary Care Provider [phone] Encounter Details Date Type Department Care Team ([facility] st Contact Info) Description 03/08/2025 Orders Only [facility] MED & PEDS [address] [place] [address] ProviderOsvaldo MD Social History Tobacco Use Types Packs/Day Years [...] Description 05/20/2025 1:15 PM EST Office Visit [facility] MED & PEDS [address] [place] [address] Elizabet Howell MD [address] [place] [address] documented as of this encounter Procedures Procedure Name Priority Date/Time Associated Diagnosis Comments FECAL IMMUNOCHEMICAL Routine 03/01/2025 11:21 AM EDT documented in this encounter Results * Fecal immunochemical (03/01/2025 11:21 AM EDT) Stool Rectal contents / Unknown Historical Provider LAB BODY FLUIDS AND STOOL S ORDERABLES Final Result documented in this encounter Visit Diagnoses Not on filedocumented in this encounter Additional Health Concerns Assessment Noted Time PHQ-9 Depression Total Score: 4 09/30/19 23 9:25 AM EDT documented as of this encounter Care Teams Zipper Cutter Relationship Specialty Start Date End Date Elizabet Howell MD [address] [place] [address] PCP - General Family Medicine 03/06/25 documented as of this encounter
--- OUTSIDE RECORDS SUMMARY | 2025-03-21 14:47 | XMS_ITS | Encounter Summary ---
Author Organization [employer] Address [address] [facility] [address] [place] [address] Care Team Providers Care Ldr Rn Name Role Phone Dasia Gar MD Primary Care Provider [phone] Elizabet Howell MD Primary Care Provider [phone] Reason for Visit * Reason Onset Date Comments Med Refill 10/08/2024 Encounter Details Date Type Department Care Team (Late st Contact Info) Description 10/08/[address] [facility] MED[facility] [address] [place] [address] Dasia Gar MD [address] [place] [address] Med Refill Social History Tobacco Use Types [...] your housing situation today? I have mg moose 06/13/[address] you li [...] Description 05/20/2025 1:15 PM EST Office Visit [facility]S [address] [place] [address] Elizabet Howell MD [address] [place] [address] documented as of this encounter Visit Diagnoses Not on filedocumented in this encounter Additional Health Concerns Assessment Noted Time PHQ-9 Depression Total Score: 4 09/30/19 23 9:25 AM EDT documented as of this encounter Care Teams Ldr Rn Relationship Specialty Start Date End Date Dasia Gar MD [address] [place] [phone] PCP - General Family Medicine 04/21/12 03/05/25 Elizabet Howell MD [address] [place] [phone] PCP - General Family Medicine 03/06/25 documented as of this encounter
--- OUTSIDE RECORDS SUMMARY | 2025-03-21 14:47 | XMS_ITS | Encounter Summary ---
Author Organization [employer] Address [address] [facility] [address] [place] [address] Care Team Providers Care Fertilizing Machine Operator Name Role Phone Dasia Gar MD Primary Care Provider [phone] Elizabet Howell MD Primary Care Provider [phone] Reason for Visit * Reason Onset Date Comments radiology order 03/01/2025 Encounter Details Date Type Department Care Team (Late st Contact Info) Description 03/01/2025 Telephone [facility] MEDICINE [address] [place] [address] Dasia Gar MD [address] [place] [address] radiology order Social History Tobacco Use Types Packs/Day Years [...] is your housing situation today? I have mgguanako virk 06/13/[address] you [...] encounter Miscellaneous Notes * Telephone Encounter - Aiyana Boothe - 03/01/2025 11:43 AM EDT TC from [facility] with [facility] calling to see if PCP will re sent order for ct but has to said on order CT abdomen and pelvis with IV. PCP DR. Gar documented in this encounter Plan of Treatment Upcoming Encounters Date Type Department Care Team (Late st Contact Info) Description 05/20/2025 1:15 PM EST Office Visit [facility] MED & PEDS [address] [place] [address] Elizabet Howell MD [address] [place] [address] documented as of this encounter Visit Diagnoses Not on filedocumented in this encounter Additional Health Concerns Assessment Noted Time PHQ-9 Depression Total Score: 4 09/30/19 23 9:25 AM EDT documented as of this encounter Care Teams Fertilizing Machine Operator Relationship Specialty Start Date End Date Dasia Gar MD [address] [place] [phone] PCP - General Family Medicine 04/21/12 03/05/25 Elizabet Howell MD [address] [place] [phone] PCP - General Family Medicine 03/06/25 documented as of this encounter
--- OUTSIDE RECORDS SUMMARY | 2025-03-21 14:47 | XMS_ITS | Encounter Summary ---
Author Organization [employer] Address [address] [place] [address] Care Team Providers Care Crop Puller Name Role Phone Elizabet Howell MD Primary Care Provider [phone] Reason for Visit * Reason Onset Date Comments Results 03/19/2025 Encounter Details Date Type Department Care Team ([facility] st Contact Info) Description 03/19/2025 Telephone [facility] MEDICINE [address] [place] [address] Elizabte Howell MD [address] [place] [address] Results Social History Tobacco Use Types Packs/Day Years [...] encounter Miscellaneous Notes * Telephone Encounter - Santa Howe RN - 03/20/2025 4:15 PM EST TC to pt. Pt states is still having 4-8 episodes of diarrhea stool daily of light brown/yellow color with watery consistency. Pt has been staying hydrated with water, louisa bertin, and additional fluids. Denies fevers, AMS, falls, weakness but does report unable to do daily life activities due to needing to be within distance to the bathroom. States that symptoms have been same since diagnosed withnorovirus 02/26/25. Advised for pt to have appt to be assessed and determine next steps. Advised will review [facility] for CT results as pt reports has completed. Appt scheduled for 03/21/25. Pt verbalizedunderstanding and agreement with plan. Protocol Used: Diarrhea (Adult) Protocol-Based Disposition: See in Office or Video Visit Today Video visit offer not recorded Positive Triage Question: * Moderate diarrhea (e.g., 4-6 times / day more than normal) and present > 48 hours (2 days) * All higher-acuity triage questions were negative. Care Advice Discussed: * Reassurance and Education - Diarrhea * Fluid Therapy During Mild to Moderate Diarrhea * Food and Nutrition During Mild to Moderate Diarrhea * Wash Your Hands * Expected Course * Reasons To Call Back - Signs of dehydration occur (such as no urine over 12 hours, very dry mouth, lightheaded, etc.) - You become worse * Telephone Encounter - Aiyana Tl - 03/20/2025 3:06 PM EST Tc from Kristy stated pt still the same not feeling better and stated is thinking bring pt to Er. Ptrequesting call back from RN PCP DR. Howell * Telephone Encounter - Farrah Luke RN - 03/20/2025 8:49 AM EST Called pt regarding request for results, spoke to . Advised to that final results have notbeen received as yet and reviewed by PCP. Advised will call back when the results are available. states still having intermittent LLQ pain and diarrhea and was advised soft diet, lots of fluids,and call back if worsening or new concerns. understands and agrees with plan. * Telephone Encounter - Halima Medina - 03/19/2025 12:17 PM EST TC from pt requesting call back regarding Results. Type of results: US Date when done: 03/12 Facility: [facility] documented in this encounter Plan of Treatment Upcoming Encounters Date Type Department Care Team (Late st Contact Info) Description 05/20/2025 1:15 PM EST Office Visit [facility] MED & PEDS [address] [place] [address] Elizabet Howell MD [address] [place] [address] documented as of this encounter Visit Diagnoses Not on filedocumented in this encounter Additional Health Concerns Assessment Noted Time PHQ-9 Depression Total Score: 4 09/30/19 23 9:25 AM EDT documented as of this encounter Care Teams Crop Puller Relationship Specialty Start Date End Date Elizabet Howell MD [address] [place] [address] PCP - General Family Medicine 03/06/25 documented as of this encounter
--- OUTSIDE RECORDS SUMMARY | 2025-03-21 14:47 | XMS_ITS | Encounter Summary ---
Author Organization [employer] Address [address] 7[address] [place] [address] Care Team Providers Care Recruiter Specialist Name Role Phone Dasia Gar MD Primary Care Provider [phone] Elizabet Howell MD Primary Care Provider [phone] Reason for Visit * Reason Comments Med Refill Encounter Details Date Type Department Care Team ([facility] Contact Info) Description 02/15/2025 Refill [facility] MED & PEDS [address] [place] [address] Dasia Gar MD [address] [place] [address] Social History Tobacco Use Types Packs/Day Years [...] Description 05/20/2025 1:15 PM EST Office Visit [facility] MED & PEDS [address] [place] [address] Elizabet Howell MD [address] [place] [address] documented as of this encounter Visit Diagnoses Not on filedocumented in this encounter Additional Health Concerns Assessment Noted Time PHQ-9 Depression Total Score: 4 09/30/19 23 9:25 AM EDT documented as of this encounter Care Teams Recruiter Specialist Relationship Specialty Start Date End Date Dasia Gar MD [address] [place] [address] PCP - General Family Medicine 04/21/12 03/05/25 Elizabet Howell MD [address] [place] [address] PCP - General Family Medicine 03/06/25 documented as of this encounter
--- OUTSIDE RECORDS SUMMARY | 2025-03-21 14:47 | XMS_ITS | Encounter Summary ---
Author Organization [employer] Address [address] [place] [address] Care Team Providers Care Analytical Data Miner Name Role Phone Elizabet Howell MD Primary Care Provider [phone] Reason for Visit * Reason Onset Date Comments call back requested 03/06/2025 Encounter Details Date Type Department Care Team ([facility] st Contact Info) Description 03/06/2025 Telephone [facility] MEDICINE [address] [place] [address] Elizabet Howell MD [address] [place] [address] call back requested Social History Tobacco Use Types Packs/Day Years [...] * Telephone Encounter - Aiyana Boothe - 03/06/2025 2:28 PM EDT TC from Alina calling to let know that pt test positive to Novovirus on 02/28. [facility] requesting acall back of a RN. She will be available today unitl 3pm but tomorrow from 9-11 or 2-3;[address] Howell documented in this encounter Plan of Treatment Upcoming Encounters Date Type Department Care Team ([facility] st Contact Info) Description 05/20/2025 1:15 PM EST Office Visit [facility] MED & PEDS [address] [place] [address] Elizabet Howell MD [address] [place] [address] documented as of this encounter Visit Diagnoses Not on filedocumented in this encounter Additional Health Concerns Assessment Noted Time PHQ-9 Depression Total Score: 4 09/30/19 23 9:25 AM EDT documented as of this encounter Care Teams Analytical Data Miner Relationship Specialty Start Date End Date Elizabet Howell MD [address] [place] [address] PCP - General Family Medicine 03/06/25 documented as of this encounter
--- OUTSIDE RECORDS SUMMARY | 2025-03-21 14:47 | XMS_ITS | Encounter Summary ---
Author Organization [employer] Address [address] [place] [address] [address] [place] [address] Care Team Providers Care Truck Crane Operator Name Role Phone Dasia Gar MD Primary Care Provider [phone] Elizabet Howell MD Primary Care Provider [phone] Reason for Referral * Imaging (Routine) - Closed Specialty Diagnoses / Procedures Referred By Contac t Referred To Contact Radiology Diagnoses Left lower quadrant pain Procedures CT Abdomen w/ Contrast Eduardo Turner MD [address] [place] [address] Phone: tel: fax: [facility] [address] [place] [address], [place] [address] Phone: tel: fax: Referral ID Status Reason Start Date Expiration Date Visits Re quested Visits Authorized [id number] Closed 03/10/2025 03/10/2026 1 1 * Imaging (Routine) - Closed Specialty Diagnoses / Procedures Referred By Contac t Referred To Contact Radiology Diagnoses Left lower quadrant pain Procedures CT Abdomen Pelvis w/ Contrast Eduardo Turner MD [address] [place] [address] Phone: tel: fax: [facility] [address] [place] [address], [address] [address] Phone: tel: fax: Referral ID Status Reason Start Date Expiration Date Visits Re quested Visits Authorized [id number] Closed 03/01/2025 03/01/2026 1 1 Encounter Details Date Type Department Care Team ([facility] st Contact Info) Description 03/01/2025 Orders Only [facility] CH[facility] MED & PEDS [address] [place] [address] Eduardo Turner MD [address] [place] [address] Left lower quadrant pain (Primary Dx) Social History Tobacco Use Types Packs/Day Years [...] 1:15 PM EST Office Visit [facility] MED & PEDS [address] [place] [address] Elizabet Howell MD [address] [place] [address] Scheduled Orders Name Type Priority Associated Diagnoses Orde r Schedule CT Abdomen Pelvis w/ Contrast Imaging Routine Left lower quadrant pain Expected: 03/01/2025, Expires: 03/01/2026 CT Abdomen w/ Contrast Imaging Routine Left lower quadrant pain Expected: 03/10/2025 (Approximate), Expires: 03/06/2026 documented as of this encounter Visit Diagnoses Diagnosis Left lower quadrant pain- Primary Abdominal pain, left lower quadrant documented in this encounter Additional Health Concerns Assessment Noted Time PHQ-9 Depression Total Score: 4 09/30/19 23 9:25 AM EDT documented as of this encounter Care Teams Truck Crane Operator Relationship Specialty Start Date End Date Dasia Gar MD [address] [place] [address] PCP - General Family Medicine 04/21/12 03/05/25 Elizabet Howell MD [address] [place] [address] PCP - General Family Medicine 03/06/25 documented as of this encounter
--- OUTSIDE RECORDS SUMMARY | 2025-03-21 14:47 | XMS_ITS | Encounter Summary ---
Author Organization [employer] Address [address] [place] [address] Care Team Providers Care Double Head Machine Operator Name Role Phone Dasia Gar MD Primary Care Provider [phone] Elizabet Howell MD Primary Care Provider [phone] Reason for Visit * Reason Comments Med Refill Encounter Details Date Type Department Care Team ([facility] Contact Info) Description 09/23/2024 Refill [facility] CHC MED & PEDS [address] [place] [address] Dasia Gar MD [address] [place] [address] Social History Tobacco Use Types Packs/Day Years [...] Description 05/20/2025 1:15 PM EST Office Visit [facility] CHC MED & PEDS [address] [place] [address] Elizabet Howell MD [address] [place] [address] documented as of this encounter Visit Diagnoses Not on filedocumented in this encounter Additional Health Concerns Assessment Noted Time PHQ-9 Depression Total Score: 4 09/30/19 23 9:25 AM EDT documented as of this encounter Care Teams Double Head Machine Operator Relationship Specialty Start Date End Date Dasia Gar MD [address] [place] [address] PCP - General Family Medicine 04/21/12 03/05/25 Elizabet Howell MD [address] [place] [address] PCP - General Family Medicine 03/06/25 documented as of this encounter
--- OUTSIDE RECORDS SUMMARY | 2025-03-21 14:47 | XMS_ITS | Encounter Summary ---
Author Organization [employer] Address [address] [place] [address] Care Team Providers Care Sequins Spooler Name Role Phone Dasia Gar MD Primary Care Provider [phone] Elizabet Howell MD Primary Care Provider [phone] Reason for Visit * Reason Onset Date Comments Med Refill 02/21/2025 Encounter Details Date Type Department Care Team (Late st Contact Info) Description 02/21/2025 Telephone [facility] MEDICINE [address] [place] [address] Dasia Gar MD [address] [place] [address] Med Refill Social History Tobacco Use Types [...] MG tablet To be sent to: - [facility] - [place], [place] - [address] [facility] documented in this encounter Plan of Treatment Upcoming Encounters Date Type Department Care Team (Late st Contact Info) Description 05/20/2025 1:15 PM EST Office Visit [facility] CHC MED & PEDS [address] [place] [address] Elizabet Howell MD [address] [place] [address] documented as of this encounter Visit Diagnoses Not on filedocumented in this encounter Additional Health Concerns Assessment Noted Time PHQ-9 Depression Total Score: 4 09/30/19 23 9:25 AM EDT documented as of this encounter Care Teams Sequins Spooler Relationship Specialty Start Date End Date Dasia Gar MD [address] [place] [address] PCP - General Family Medicine 04/21/12 03/05/25 Elizabet Howell MD [address] [place] [address] PCP - General Family Medicine 03/06/25 documented as of this encounter
--- OUTSIDE RECORDS SUMMARY | 2025-03-21 14:47 | XMS_ITS | Encounter Summary ---
Author Organization [employer] Address [address] [place] [address] Care Team Providers Care Precision Lens Generator Name Role Phone Dasia Gar MD Primary Care Provider [phone] Elizabet Howell MD Primary Care Provider [phone] Encounter Details Date Type Department Care Team ([facility] st Contact Info) Description 03/01/2025 Telephone [facility] MEDICINE [address] [place] [address] Dasia Gar MD [address] [place] [address] Social History Tobacco Use Types Packs/Day Years [...] Description 05/20/2025 1:15 PM EST Office Visit [facility] MED & PEDS [address] [place] [address] Elizabet Howell MD [address] [place] [address] documented as of this encounter Visit Diagnoses Not on filedocumented in this encounter Additional Health Concerns Assessment Noted Time PHQ-9 Depression Total Score: 4 09/30/19 23 9:25 AM EDT documented as of this encounter Care Teams Precision Lens Generator Relationship Specialty Start Date End Date Dasia Gar MD [address] [place] [address] PCP - General Family Medicine 04/21/12 03/05/25 Elizabet Howell MD [address] [place] [address] PCP - General Family Medicine 03/06/25 documented as of this encounter
--- OUTSIDE RECORDS SUMMARY | 2025-03-21 14:47 | XMS_ITS | Encounter Summary ---
Author Organization [employer] Address [address] [place] [address] Care Team Providers Care Remote Ruby On Rails Developer Name Role Phone Dasia Gar MD Primary Care Provider [phone] Elizabet Howell MD Primary Care Provider [phone] Reason for Visit * Reason Onset Date Comments Reschedule 08/10/2023 Encounter Details Date Type Department Care Team (Late st Contact Info) Description 08/10/2023 Telephone [facility] MEDICINE [address] [place] [address] Dasia Gar MD [address] [place] [address] Reschedule Social History Tobacco Use Types Packs/Day [...] housing situation today? I have mg moose 03/04/[address] you li [...] AM EDT Tc from pt requesting r/s INTERNET DEVELOPER appt documented in this encounter Plan of Treatment Upcoming Encounters Date Type Department Care Team (Late st Contact Info) Description 05/20/2025 1:15 PM EST Office Visit [facility] CHC MED & PEDS [address] [place] [address] Elizabet Howell MD [address] [place] [address] documented as of this encounter Visit Diagnoses Not on filedocumented in this encounter Additional Health Concerns Assessment Noted Time PHQ-9 Depression Total Score: 4 09/30/19 23 9:25 AM EDT documented as of this encounter Care Teams Remote Ruby On Rails Developer Relationship Specialty Start Date End Date Dasia Gar MD [address] [place] [address] PCP - General Family Medicine 04/21/12 03/05/25 Elizabet Howell MD [address] [place] [address] PCP - General Family Medicine 03/06/25 documented as of this encounter
--- OUTSIDE RECORDS SUMMARY | 2025-03-21 14:48 | XMS_ITS | Encounter Summary ---
Author Organization [employer] Address [address] [place] [address] Care Team Providers Care Director Check Name Role Phone Dasia Gar MD Primary Care Provider Elizabet Howell MD Primary Care Provider Reason for Visit * Reason Comments Med Refill Encounter Details Date Type Department Care Team ([facility] st Contact Info) Description 05/04/2023 Refill [facility] CHC MED & PEDS [address] [place], [place] [id number] Anahi Parker, ANP [address] [place] [address] Low back pain without sciatica, unspecified back [...] Description 05/20/2025 1:15 PM EST Office Visit [facility] CHC MED & PEDS [address] [place] [address] Elizabet Howell MD [address] [place] [address] documented as of this encounter Visit Diagnoses Diagnosis Low back pain without sciatica, unspecified back pain laterality, unspecified chronicity documented in this encounter Additional Health Concerns Assessment Noted Time PHQ-9 Depression Total Score: 4 09/30/19 23 9:25 AM EDT documented as of this encounter Care Teams Director Check Relationship Specialty Start Date End Date Dasia Gar MD [address] [place] [address] PCP - General Family Medicine 04/21/12 03/05/25 Elizabet Howell MD [address] [place] [address] PCP - General Family Medicine 03/06/25 documented as of this encounter
--- OUTSIDE RECORDS SUMMARY | 2025-03-21 14:48 | XMS_ITS | Encounter Summary ---
Author Organization [employer] Address [address] [place] [address] Care Team Providers Care Cis Coordinator Name Role Phone Elizabet Howell MD Primary Care Provider [phone] Encounter Details Date Type Department Care Team (Latest Contact Info) Description 03/21/2025 Travel Social History Tobacco Use Types Packs/Day [...] 1:15 PM EST Office Visit [facility] MED & PEDS [address] [place] [address] Elizabet Howell MD [address] [place] [address] documented as of this encounter Visit Diagnoses Not on filedocumented in this encounter Additional Health Concerns Assessment Noted Time PHQ-9 Depression Total Score: 4 09/30/19 23 9:25 AM EDT documented as of this encounter Care Teams Cis Coordinator Relationship Specialty Start Date End Date Elizabet Howell MD [address] [place] [address] PCP - General Family Medicine 03/06/25 documented as of this encounter
--- OUTSIDE RECORDS SUMMARY | 2025-03-21 14:48 | XMS_ITS | Clinical Summary ---
Author Organization [employer] Address [address] [facility] [address] [place] [address] Care Team Providers Care Delivery Man Name Role Phone Elizabet Howell MD Primary Care Provider [phone] Allergies Active Allergy Reactions Criticality Noted Date Comments Pregabalin 01/06/2016 Medications hydrOXYzine HCl (Atarax) 25 MG tablet take 1 tablet (25MG) by oral route every 6 - 8 hours Active Blood Pressure kit Apply 1 not specified by [facility]Non-dr ug; combo) route every day 11/19/19 21 Active lisinopril 20 MG tabletIndicatio ns:Dizziness TAKE ONE TABLET BY MOUTH EVERY DAY 90 tablet 11 07/31/19 25 Active albuterol (ProAir HFA) 108 (90 Base) MCG/ACT inhalerIndicati ons:Symptom of wheezing Inhale 2 puffs in the [...] 25 Active omeprazole (PriLOSEC) [address] capsuleIndicati ons:Gastroesoph ageal reflux disease without esophagitis TAKE ONE CAPSULE EVERY DAY 90 capsule 1 12/06/19 25 Active QUEtiapine (SEROquel) 25 MG tablet TAKE 1 TABLET BY MOUTH TWICE A DAY NEEDED FOR AGITATION 60 tablet 12/27/19 25 Active cyclobenzaprine (Flexeril) 5 MG tablet Take 1 tablet (5 mg) by mouth at bedtime. 30 tablet 02/22/20 25 025 Active topiramate (Topamax) 25 MG tabletIndicatio ns:Migraine without aura, not intractable, without status migrainosus TAKE ONE TABLET EVERY DAY 30 tablet 5 02/26/20 25 Active famotidine (Pepcid) 20 MG tabletIndicatio ns:Reflux gastritis Take 1 tablet (20 mg) by mouth 2 times daily. 60 tablet 11 02/27/20 25 026 Active hydrOXYzine pamoate (Vistaril) 25 MG capsule Take 25 mg by mouth Once per day. 03/13/20 25 Active dicyclomine (Bentyl) 20 MG tablet Take 1 tablet (20 mg) by mouth before breakfast, before lunch, before evening meal, and at bedtime. 120 tablet 3 5 12:08 PM EST 03/21/20 026 Active lidocaine (Lidoderm) 5 % patchIndication s:Chronic right shoulder pain Apply 1 patch topically Once per day. Remove & discard patch within 12 hours or as directed by . 30 patch 11 06/20/19 25 025 Discontinued(Th erapy completed) topiramate (Topamax) 25 MG tabletIndicatio ns:Migraine without aura, not intractable, without status migrainosus TAKE ONE TABLET EVERY DAY 30 tablet 3 10/23/19 25 025 Discontinued Active Problems Problem Noted Date Diagnosed Date Long-term current use of opiate analgesic 2024 BHAVIK (generalized anxiety disorder) 05/11/2022 Cannabis dependence 05/11/2022 Anxiety 09/27/2013 Backache 09/27/2013 Depressive disorder 09/27/2013 Resolved Problems Problem Noted Date Diagnosed Date Resolved Date Recurrent major depressive disorder 05/11/2022 06/20/2024 Encounters Date Type Department Care Team Description 03/21/2025 10:15 AM EST Office Visit [facility] [address] [place] [address] Justine Murillo MD Chronic diarrhea (Primary Dx); Diverticulosis of colon; Colon wall thickening 03/21/2025 Travel 03/19/[address] [address] Elizabet Howell MD Results 03/08/2025 Orders Only [facility] [address] [place] [address] Osvaldo Farmer MD 03/07/[address] [address] Elizabet Howell MD Nurse Triage 03/06/[address] [address] Elizabet Howell MD call back requested 03/01/2025 Orders Only [facility] [address] [place] [address] Eduardo Turner MD Left lower quadrant pain (Primary Dx) 03/01/[address] [address] Dasia Gar MD radiology order 03/01/[address] [address] Dasia Gar MD 02/28/2025 Results Follow-Up [address] [address] Marguerite Conti RN Stool - Gastrointestinal panel 02/28/2025 Telephone [facility] [address] [place] [address] Dasia Gar MD Nurse Triage 02/28/2025 Telephone [facility] [address] [place] [address] Dasia Gar MD Critical result 02/26/2025 1:20 PM EDT Office Visit [facility] [address] [place] [address] Eduardo Turner MD Diarrhea, unspecified type (Primary Dx); Reflux gastritis; Left lower quadrant pain 02/26/2025 Telephone [facility] [address] [place] [address] Eduardo Turner MD Appointment Request 02/26/2025 Travel 02/25/2025 Telephone [facility] [address] [place], [place] [phone] Dasia Gar MD Nurse Triage 02/24/2025 Refill [facility] [address] [place], [place] [phone] Eduardo Turner MD Migraine without aura, not intractable, without status migrainosus 02/22/2025 Telephone [facility] [address] [place] [address] Dasia Gar MD No Show 02/22/2025 Telephone [facility] [address] [place], [place] [phone] Dasia Gar MD Nurse Triage 02/21/2025 Orders Only [facility] [address] [place], [place] [phone] Dasia Gar MD 02/21/[address] [address] Dasia Gar MD Med Refill 02/15/2025 Refill [facility] [address] [place] [address] Dasia Gar MD 02/08/2025 11:30 AM EDT Office Visit [facility] [address] [place] [address] Dasia Gar MD Irritable bowel syndrome, unspecified type (Primary Dx) 02/08/2025 Orders Only [facility] [address] [place] [address] Cynthia Zavala [place] 02/08/2025 Travel 02/07/2025 Telephone [facility] [address] [place], [place] [phone] Dasia Gar MD Nurse Triage 01/28/2025 Telephone [facility] [address] [place], [place] [phone] Dasia Gar MD Nurse Triage 01/24/2025 Telephone [facility] [address] [place], [place] [phone] Dasia aGr MD Nurse Triage 12/26/2024 Refill [facility] [address] [facility] [place] [address] Dasia Gar MD from Last 3 Months Immunizations Immunization Administration [...] 20 03/21/2025 10:44 AM EST Oxygen Saturation 98% 02/26/2025 1:17 PM EDT Inhaled Oxygen Concentration - - Weight 77.1 kg (170 lb) 03/21/2025 10:44 AM EST Height 174 cm (5' 8.5 ) 02/26/2025 1:17 PM EDT Body Mass Index 25.47 02/26/2025 1:17 PM EDT Plan of Treatment Upcoming Encounters Date Type Department Care Team (Late st Contact Info) Description 05/20/2025 1:15 PM EST Office Visit [facility] [address] [place] [address] Elizabet Howell MD [address] [place] [address] Health Maintenance Due Date Last Done Comments CT Colonography 1964 Colonoscopy 1964 FIT DNA/Cologuard 1964 FOBT 1965 Sigmoidoscopy 1965 Pneumococcal Vaccine: [...] - T d or Tdap) 12/18/2025 12/19/2015 Colorectal Cancer Screening 03/01/2026 FIT 03/01/2026 03/01/2025 Tobacco Screening 03/21/2026 03/21/2025 Lipid Panel 12/04/2027 12/03/2022, 11/25/2021 RSV Patients [...] Routine 03/21/2025 11:41 AM EST Chronic diarrhea FECAL IMMUNOCHEMICAL Routine 03/01/2025 11:21 AM EDT GASTROINTESTINAL PANEL Routine 5:00 AM EDT Reflux gastritis HEPATITIS C AB W/REFL TO HCV RNA, QN, PCR Routine 08/16/2024 8:52 AM EDT Screening for STD (sexually transmitted disease) HIV 1/2 ANTIGEN/ANTIBODY, FOURTH GENERATION W/RFL Routine 08/16/2024 8:52 AM EDT Screening for STD (sexually transmitted disease) LIPID PANEL, STANDARD Routine 12/03/2022 9:33 AM EDT Primary hypertension from Last 3 Months or Most Recently Relevant to Health Maintenance Results * (ABNORMAL) CBC auto differential (03/21/2025 11:41 AM EST) White Blood Count 11.1(H) 4.8 - 10.8 X10*3/uL [facility] Red Blood Count 5.13 4.60 - 5.80 X10*6/uL [facility] Hemoglobin 15.3 14.0 - 18.0 g/dl [facility] Hematocrit 45.3 42.0 - 52.0 % [facility] Mean Corpuscular Volume 88.3 80.0 - 98.0 fL [facility] Mean Corpuscular Hemoglobin 29.8 27.0 - 33.0 pg [facility] Mean Corpuscular HGB Conc 33.8 31.0 - 36.0 g/dl [facility] Red Cell Distribution Width 11.9 11.0 - 16.0 % [facility] Platelet Count 320 160 - 400 X10*3/uL [facility] Mean Platelet Volume 8.3(L) 9.4 - 12.4 fL [facility] Neutrophils Percent Auto 71.1 45 - 73 % [facility] Imm Gran Pct Auto 0.4 0.0 - 0.4 % [facility] Lymphocytes Percent Auto 18.3(L) 20 - 40 % [facility] Monocytes Percent Auto 7.3 2 - 11 % [facility] Eosinophils Percent Auto 2.7 0 - 4 % [facility] Basophils Percent Auto 0.2 0 - 2 % [facility] NRBC Pct Auto 0.0 0.0 - 0.2 /100WBC [facility] Neutrophils Absolute Auto 7.9 2.0 - 8.3 x10*3/uL [facility] Imm Gran Abs Auto 0.05(H) 0.00 - 0.03 X10*3/uL [facility] Lymphocytes Absolute Auto 2.0 1.2 - 4.9 X10*3/uL [facility] Monocytes Absolute Auto 0.8 0.1 - 1.2 X10*3/uL [facility] Eosinophils Absolute Auto 0.3 0.0 - 0.4 X10*3/uL [facility] Basophils Absolute Auto 0.0 0.0 - 0.2 X10*3/uL [facility] NRBC Abs Auto 0.000 0.0 - 0.012 X10*3/uL [facility] Blood Venous blood specimen / Unknown 03/21/2025 11:41 AM EST 03/21/2025 1:56 PM EST Justine Murillo MD LAB BLOOD ORDERABLES Final Re sult [facility] [address] [place] [address] [phone] * Fecal immunochemical (03/01/2025 11:21 AM EDT) Stool Rectal contents / Unknown Historical Provider LAB BODY FLUIDS AND STOOL S ORDERABLES Final Result * (ABNORMAL) Stool - Gastrointestinal panel (02/27/2025 5:00 AM EDT) Campylobacter Not Detected Not Detect. [facility] Plesiomonas shigelloides Not Detected Not Detect. [facility] Salmonella Not Detected Not Detect. [facility] Vibrio Not Detected Not Detect. [facility] Vibrio cholerae Not Detected Not Detect. [facility] YERSINIA ENTEROCOLITICA Not Detected Not Detect. [facility] Enteroaggregative E. coli (EAEC) Not Detected Not Detect. [facility] Enteropathogenic E. coli (EPEC) Not Detected Not Detect. [facility] Enterotoxigenic E. coli (ETEC) lt/st Not Detected Not Detect. [facility] Shiga-like toxin-producing E. coli (STEC) stx1/stx2 Not Detected Not Detect. [facility] E coli O157 Not applicable Not Detect. [facility] Comment:E. coli containing t he O157 antigen are a subset ofShiga-like toxin- producing E. coli (STEC). Shigella/Enteroinvasive E. coli (EIEC) Not Detected Not Detect. [facility] Cryptosporidium Not Detected Not Detect. [facility] Cyclospora cayetanensis Not Detected Not Detect. [facility] Entamoeba histolytica Not Detected Not Detect. [facility] Giardia lamblia Not Detected Not Detect. [facility] Adenovirus F 40/41 Not Detected Not Detect. [facility] Astrovirus Not Detected Not Detect. [facility] Norovirus GI/GII Detected(A) Not Detect. [facility] Comment:Results of NOROVIRUS DETECTED called to and read back bySALLY Juárez (critical line) and BRIA on 02/28/25 at 0835by BAILEE. Rotavirus A Not Detected Not Detect. [facility] Sapovirus Not Detected Not Detect. [facility] Comment: All results must be correlated with clinical findings.Negative results do not exclude the possibility ofgastrointestinal infection and should not be used as thesole basis for diagnosis, treatment, or other managementdecisions. Virus, bacteria, and parasite nucleic acid maypersist in vivo independently of organism viability.Additionally, some organisms may be carriedasymptomatically.Detection of organism targets does not imply that thecorresponding organisms are infectious or are the causativeagents for clinical symptoms. There is a risk of falsenegative values due to the presence of sequence variants inthe gene targets of the assay, amplification inhibitors inspecimens, or inadequate numbers of organisms foramplification.The identification of several diarrheagenic E. colipathotypes has historically relied upon phenotypiccharacteristics. This panel targets genetic determinantscharacteristic of most pathogenic strains, but may notdetect all strains having phenotypic characteristics of apathotype.The performance of this test has not been established formonitoring treatment of infection with any of the panelorganisms.This assay is performed by Multiplexed PCR, utilizing the[employer] Film Array. Stool Rectal contents / Unknown 02/27/2025 5:00 AM EDT 02/27/2025 2:00 PM EDT us Eduardo Turner MD LAB MICROBIOLOGY - GENERAL ORDERABLES Final Result Performing Organization Address [facility]/ZIP Co de Phone Number [facility] [address] [place] [address] [phone] * Hepatitis C Antibody with Reflex to HCV, RNA, Quantitative, Real-Time PCR (08/16/2024 8:52 AM EDT) Hepatitis C Antibody Nonreactive Nonreactive [facility] Comment:Antibodies to HCV no t detected; does not exclude early acuteHCV infection. Blood Venous blood specimen / Unknown 08/16/2024 8:52 AM EDT 08/16/2024 2:37 PM EDT us Dasia Gar MD LAB BLOOD ORDERABLES Final Resul t Performing Organization Address [facility]/ZIP Co de Phone Number [facility] [address] [place] [phone] * HIV-1/2 Antigen and Antibodies, Fourth Generation, with Reflexes (08/16/2024 8:52 AM EDT) HIV AB/AG Nonreactive Nonreactive [facility] Comment:HIV-1 p24 Ag and/or HIV-1/HIV-2 Ab not detected.A test result that is nonreactive does not exclude thepossibility of exposure to or infection with HIV-1 and/orHIV-2. Nonreactive results in this assay for individualswith prior exposure to HIV-1 and/or HIV-2 may be due toantigen and antibody levels that are below the limit ofdetection of this assay.The [email or web address] HIV Ag/Ab Combo assay result andsupplemental assay results should be interpreted inconjunction with the patient's clinical presentation,history and other laboratory results. If the results areinconsistent with clinical evidence, additional testing issuggested to confirm the result. Blood Venous blood specimen / Unknown 08/16/2024 8:52 AM EDT 08/16/2024 2:37 PM EDT Dasia Gar MD LAB BLOOD ORDERABLES Final Resul t Performing Organization Address [facility] Co de Phone Number [facility] [address] [place] [phone] [phone] * Lipid Panel, Standard (12/03/2022 9:33 AM EDT) Triglycerides 102 mg/dL [facility] Comment:Desirable Triglyceri de: less than 150 mg/dLBorderline High Triglyceride 150-199 mg/dLHigh Triglyceride: 200-499 mg/dLVery High Triglyceride: greater than or equal to 5OO mg/dL Cholesterol 136 mg/dL [facility] Comment:Desirable Cholestero l: less than 200 mg/dLBorderline High Cholesterol: 200-239 mg/dLHigh Cholesterol: greater than 239 mg/dL LDL Cholesterol Calculated 74 mg/dl [facility] Comment:Desirable LDL: less than 100 mg/dLNear Optimal/Above Optimal LDL: 110- 129 mg/dLBorderline High LDL: 130-159 mg/dLHigh LDL: 160-189 mg/dLVery High LDL: greater than or equal to 190 mg/dL HDL Cholesterol 42 mg/dL [facility] Comment:Desirable HDL: great er than 40 mg/dL Note: This HDL assay may give artificially low results in patients with liver disease. Blood Venous blood specimen / Unknown 12/03/2022 9:33 AM EDT 12/03/2022 2:12 PM EDT Dasia Gar MD LAB BLOOD ORDERABLES Final Resul t Performing Organization Address [facility] Co de Phone Number [facility] [address] [place] [address] [phone] from Last 3 Months or Most Recently Relevant to Health Maintenance Insurance * Guarantor: Srinath Carey Account Type Relation to Patient Date of Phone Billing Address Personal/Family Self [address] [place] Care Teams Delivery Man Relationship Specialty Start Date End Date Elizabet Howell MD [address] [place] [address] GEETHA LARSEN [phone] PCP - General Family Medicine 03/06/25
--- OUTSIDE RECORDS SUMMARY | 2025-03-21 14:48 | XMS_ITS | Encounter Summary ---
Author Organization [employer] Address [address] [facility] [facility] [address] [facility] [address] [address] [place] [address] Care Team Providers Care Learning Technologist Name Role Phone Dasia Gar MD Primary Care Provider [phone] Elizabet Howell MD Primary Care Provider [phone] Reason for Visit * Reason Onset Date Comments Med Refill 04/02/2024 Encounter Details Date Type Department Care Team (Late st Contact Info) Description 04/02/2024 Telephone [facility] [address] [place] [address] Dasia Gar MD [address] [place] [address] Med Refill Social History Tobacco Use Types [...] housing situation today? I have mgguanako virk 03/04/[address] you [...] 12 hr tablet To be sent to: [facility] documented in this encounter Plan of Treatment Upcoming Encounters Date Type Department Care Team ([facility] st Contact Info) Description 05/20/2025 1:15 PM EST Office Visit [facility] [address] [place] [address] Elizabet Howell MD [address] [place] [address] documented as of this encounter Visit Diagnoses Not on filedocumented in this encounter Additional Health Concerns Assessment Noted Time PHQ-9 Depression Total Score: 4 09/30/19 23 9:25 AM EDT documented as of this encounter Care Teams Learning Technologist Relationship Specialty Start Date End Date Dasia Gar MD [address] [place] [phone] PCP - General Family Medicine 04/21/12 03/05/25 Elizabet Howell MD [address] [place] [phone] PCP - General Family Medicine 03/06/25 documented as of this encounter
--- OUTSIDE RECORDS SUMMARY | 2025-03-21 14:48 | XMS_ITS | Encounter Summary ---
Author Organization [employer] Address [address] [facility] [address] [place] [address] Care Team Providers Care Facility Assistant Name Role Phone Dasia Gar MD Primary Care Provider [phone] Elizabet Howell MD Primary Care Provider [phone] Reason for Visit * Reason Comments Med Refill Encounter Details Date Type Department Care Team ([facility] st Contact Info) Description 05/04/2023 Refill [facility] [address] [place] [address] Dasia Gar MD [address] [place] [address] Low back pain without sciatica, unspecified back [...] [facility] [address] [place] [address] Elizabet Howell MD [address] [place] [address] documented as of this encounter Visit Diagnoses Diagnosis Low back pain without sciatica, unspecified back pain laterality, unspecified chronicity documented in this encounter Additional Health Concerns Assessment Noted Time PHQ-9 Depression Total Score: 4 09/30/19 23 9:25 AM EDT documented as of this encounter Care Teams Facility Assistant Relationship Specialty Start Date End Date Dasia Gar MD [address] [place] [phone] PCP - General Family Medicine 04/21/12 03/05/25 Elizabet Howell MD [address] [place] [phone] PCP - General Family Medicine 03/06/25 documented as of this encounter
[2025-03-21 15:13] LABS: Alanine Aminotransferase 27 U/L (0-40); Albumin Level 5.1 g/dL (3.5-5.0); Alkaline Phosphatase 110 U/L (39-117); Anion Gap 14 (12-20); Aspartate Amino Transferase 25 U/L (5-37); Blood Urea Nitrogen 21 mg/dL (9-16); Calcium 9.4 mg/dL (8.4-10.2); Carbon Dioxide 21 mmol/L (22-29); Chloride 106 mmol/L (96-108); Estimated Glomerular Filt Rate 53; Iron 61 mcg/dL (45-160); Lipase 32 U/L (8-78); Magnesium 2.3 mg/dL (1.6-2.6); Percent Iron Saturation 22 % (15-50); Potassium 4.3 mmol/L (3.3-5.1); Sodium 137 mmol/L (135-145); Total Iron Binding Capacity 273 mcg/dL (228-428); Total Protein 8.2 g/dL (6.5-8.0); Unsaturated Iron Binding 212 ug/dL
[2025-03-21 17:37] LABS: Free T4 (Free Thyroxine) 0.95 ng/dL (0.71-1.85)
[2025-03-22 22:44] LABS: Immunoglobulin A 364 mg/dL (47-310); Transglutaminase Ab IgG <1.0 U/mL
== END 2025-03-21 11:40 | disposition home or self-care (01) ==
LOC: HO.CHCLDS 11:39
PROVIDERS: Visit Provider Pediatrics
DX: Z13.29 Encounter for screening for other suspected endocrine disorder (principal); K52.9 Noninfective gastroenteritis and colitis, unspecified
CPT/HCPCS: 36415; 80053; 82248; 82784; 83540; 83690; 83735; 84439; 84443; 85025; 85652; 86140; 86258; 86364

== ENCOUNTER 2025-03-22 09:57 | Outpatient (REF) | payer MEDICARE, OTHER, SELFPAY ==
[2025-03-22 15:47] LABS: Leukocytes Stool Qualitative NEGATIVE (NEGATIVE)
== END 2025-03-22 09:58 | disposition home or self-care (01) ==
LOC: HO.CHCLNP 09:57
PROVIDERS: Visit Provider Pediatrics
DX: K52.9 Noninfective gastroenteritis and colitis, unspecified (principal)
CPT/HCPCS: 83993; 87177; 87209; 89055